=== PATIENT | female | born 1965 | race Caucasian/White ===

== ENCOUNTER 2022-03-08 07:59 | Oncology outpatient (recurring) (ONCR) | payer MEDICAID, SELFPAY ==
[2022-03-08 09:43] LABS: Basophils % 0.4 %; Eosinophils # 0.1 10^3/uL (0.0-0.8); Eosinophils % 4.6 %; Hematocrit 40.9 % (37.0-47.0); Lymphocytes # 0.7 10^3/uL (0.8-4.8); Lymphocytes % 24.7 %; Mean Corpuscular HGB Conc 31.8 g/dL (30.0-36.0); Mean Corpuscular Hemoglobin 26.7 pg (28.0-34.0); Mean Platelet Volume 9.5 fL (7.4-10.4); Monocytes # 0.2 10^3/uL (0.2-0.9); Monocytes % 6.7 %; Neutrophils # 1.79 10^3/uL (1.8-7.7); Neutrophils % 63.2 %; Nucleated Red Blood Cells % 0 %; Platelet Count 100 10^3/cmm (130-400); Red Blood Count 4.87 10^6/uL (4.1-5.3); Red Cell Distribution Width 15.7 % (12.1-15.1); White Blood Count 2.8 10^3/uL (4.0-10.0)
[2022-03-08 09:56] LABS: Erythrocyte Sedimentation Rate 9 mm/hr (0-15)
[2022-03-08 10:04] LABS: LAB Peripheral Smear Sent for Review
[2022-03-08 10:19] LABS: Alanine Aminotransferase 26 U/L (0-33); Albumin Level 4.1 g/dL (3.5-5.2); Alkaline Phosphatase 60 U/L (35-105); Aspartate Amino Transferase 33 U/L (0-32); Blood Urea Nitrogen 17 mg/dL (6-20); Calcium 9.3 mg/dL (8.5-10.5); Carbon Dioxide 29 mmol/L (22-29); Chloride 103 mmol/L (98-107); Glomerular Filtration Rate 103.8 mL/min (90-130); Glucose 96 mg/dL (65-115); Osmolality Calculated 293 mOsm/kg (285-295); Sodium 141 mmol/L (136-145); Thyroid Stimulating Hormone 3.92 uIU/mL (0.27-4.20); Total Bilirubin 0.8 mg/dL (0.15-1.2); Total Protein 7.1 g/dL (6.6-8.7)
[2022-03-08 10:31] LABS: Folate Level 12.1 ng/mL (4.8-37.3)
[2022-03-08 14:32] LABS: Iron 81 ug/dL (37-145); Percent Saturation 20.5 % (20-50); Total Iron Binding Capacity 394 mcg/dl; Unsaturated Iron Binding 313 ug/dL (112-347)
[2022-03-08 14:42] LABS: Vitamin B12 572 pg/mL (232-1245)
[2022-03-09 14:34] LABS: Anti-Nuclear Antibody Screen NEGATIVE (NEGATIVE)
[2022-03-10 22:28] LABS: HEP C RNA Viral Load Quant <1.18 NOT DETECTED Log IU/mL (NOT DETECTED); HEP C RNA Viral Load Quant <15 NOT DETECTED IU/mL (NOT DETECTED)
== END 2022-03-20 23:59 | disposition home or self-care (01) ==
PROVIDERS: PCP Family Medicine; Visit Provider Internal Medicine Medical Oncology
DX: D64.9 Anemia, unspecified (principal); R53.83 Other fatigue; M25.50 Pain in unspecified joint; B19.20 Unspecified viral hepatitis C without hepatic coma
CPT/HCPCS: 36415; 80053; 82607; 82746; 83540; 83550; 84443; 85025; 85651; 86038; 86140; 86431; 87522

== ENCOUNTER 2022-03-18 23:24 | Emergency (ER) | payer MEDICAID, SELFPAY ==
[2022-03-18 23:25] VITALS: BP 106/70; PULSE 58; RESP 18; TEMP 36.6; O2SAT 95; BMI 47.0
--- NOTE | 2022-03-18 23:26 | XRR_ITS ---
PROCEDURE INFORMATION: Exam: XR Chest Exam date and time: 03/18/2022 11:43 PM Age: 56 years old Clinical indication: Prior surgery; Surgery type: Gb; Patient HX: Gross hematemesis. Hypotensive. TECHNIQUE: Imaging protocol: Radiologic exam of the chest. Views: 1 view. COMPARISON: CR XR chest 2V* [id number] 06/25/2015 8:13 AM FINDINGS: Lungs: Minor areas of lung base atelectasis or scarring. No consolidation. Pleural spaces: Unremarkable. No pleural effusion. No pneumothorax. Heart/Mediastinum: The heart is large. No overt CHF. Bones/joints: Unremarkable. XR/XR chest 1V portable [id number] IMPRESSION: Stable chest with chronic findings but no definite acute process.
[2022-03-18] MEDS: sodium chloride 0.9% 1,000 ML 999 ML IV (23:30)
--- NOTE | 2022-03-18 23:30 | ECG_ITS ---
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 Measurements Intervals [place] Rate: 80 P: 43 [place]: 128 QRS: 51 QRSD: 79 T: 82 QT: 367 QTc: 423 Interpretive Statements SINUS RHYTHM NONSPECIFIC ST & T-WAVE ABNORMALITY No previous ECG available for comparison Electronically Signed On 03-19-2022 19:09:39 BREAKFAST COOK by Eloisa Gomez M.D. [id number]
--- NOTE | 2022-03-18 23:34 | W.ED.GENADLT ---
HPI - General Adult General: Chief complaint: General Medical Stated complaint: vomiting blood Time Seen by Provider: 03/18/22 23:25 Source: patient and EMS Mode of arrival: EMS Limitations: no limitations History of Present Illness: 56-year-old female states roughly an hour ago she started having vomiting blood. EMS states that she had large amount of blood in the toilet she has vomited in route as well vomitus has been bright red in nature no coffee-ground patient had some epigastric abdominal pain she denies any history of GI bleeds no history of cirrhosis she is not a drinker she has no history of varices she states she does take ibuprofen daily. Associated symptoms: Reports vomiting; Deny chest pain, dyspnea, headache(s) or rash Review of Systems Const: Denies: fever(s), chills, body aches or change in appetite Eyes: Denies: blurry vision or eye discomfort ENMT: Denies: throat pain or dental pain Card: Denies: chest pain Resp: Denies: dyspnea GI: Reports: vomiting and hematemesis : Denies: dysuria Musc: Denies: neck pain or back pain Skin/Breast: Denies: rash Neuro: Denies: headache(s) Psych: Denies: depression Chandan/Lymph: Denies: easy bruising All/Imm: Denies: urticaria PFSH ED PFSH: Medical History Celiac disease GERD (gastroesophageal reflux disease) Hepatitis C Treated in 2012 History of iron deficiency anemia Hypertension Obstructive sleep apnea Surgical History History of section History of cholecystectomy History of hysterectomy with unilateral oophorectomy (2009) Family History Father Cancer Liver and bone cancer Mother Cancer Breast and uterine cancer Brother Cancer Lung cancer Other Anesthesia complication Bleeding disorder CAD (coronary artery disease) Chronic kidney disease (CKD) Clotting disorder Diabetes Hypertension Psychiatric illness Denies family history of Dementia Hyperlipidemia Suicide Lung disease Stroke Social History Smoking and tobacco status: never smoked Alcohol intake: never Physical Exam Const: COMMON NORMALS: patient oriented x3 GENERAL APPEARANCE: ill appearing HENMT: COMMON NORMALS: normocephalic and atraumatic HEAD & SCALP: normocephalic and atraumatic Eye: COMMON NORMALS: Equal, round and reactive pupils present and EOMs intact bilaterally PUPIL: Yes Equal, round and reactive pupils present Neck/C-Spine: COMMON NORMALS: full ROM and supple Chest: COMMONS NORMALS: normal inspection of the chest and normal palpation of entire chest wall Resp: COMMON NORMALS: normal respiratory effort, No retractions, No use of accessory muscles and clear to auscultation bilaterally AUSCULTATION: clear to auscultation bilaterally Cardio: COMMON NORMALS: regular rate, regular rhythm and No murmurs present (Cardio) RATE: regular rate RHYTHM: regular rhythm GI: COMMON NORMALS: Normal to inspection, nondistended, normoactive bowel sounds present, Soft to palpation, non-tender and no masses PALPATION: Yes Soft to palpation Extremity: COMMON NORMALS: normal to inspection and full ROM Neuro: COMMON NORMALS: patient oriented x3, moves all extremities and no focal motor deficits Psych: COMMON NORMALS: mental status grossly normal, Normal thought process present and cooperative THOUGHT PROCESS: Normal thought process present Skin: COMMON NORMALS: no rashes or lesions noted and no wounds GENERAL SKIN EXAM: no rashes or lesions noted Course Vital Signs: Vital signs: Vital Signs Temperature 98 F 03/18/22 23:25 Pulse Rate 86 03/19/22 00:40 Respiratory Rate 19 H 03/19/22 00:40 Blood Pressure 152/80 03/19/22 00:40 Pulse Oximetry 97 03/19/22 00:40 Oxygen Delivery Me thod 03/19/22 00:40 [facility] - General Adult Medical Decision Making Patient presents with upper GI bleed she had had a large amount of hematemesis at home and in route patient was originally diaphoretic hypotensive she is much improved here after transfusion patient started on Protonix drip as well and given transaminase acid. Blood pressure is now 155/78 I did speak to Dr. Waldron of surgery along with the hospitalist will admit to the ICU at this time Lab Data 03/18/22 23:35 03/18/22 23:35 Radiology Impressions Chest X-Ray 03/18/22 23:26 IMPRESSION: Stable chest with chronic findings but no definite acute process. Laboratory Results WBC 7.0 10^3/uL (4.0-10.0) 03/18/22 23:35 RBC 4.26 10^6/uL (4.1-5.3) 03/18/22 23:35 Hgb 11.3 g/dL (11.5-15.3) L 03/18/22 23:35 Hct 35.7 % (37.0-47.0) L 03/18/22 23:35 MCV 83.8 fl (81-99) 03/18/22 23:35 MCH 26.5 pg (28.0-34.0) L 03/18/22 23:35 MCHC 31.7 g/dL (30.0-36.0) 03/18/22 23:35 RDW 15.7 % (12.1-15.1) H 03/18/22 23:35 Plt Count 181 10^3/cmm (130-400) 03/18/22 23:35 MPV 10.1 fL (7.4-10.4) 03/18/22 23:35 Neut % (Auto) 58.0 % 03/18/22 23:35 Lymph % (Auto) 29.4 % 03/18/22 23:35 [place] % (Auto) 6.6 % 03/18/22 23:35 Eos % (Auto) 5.0 % 03/18/22 23:35 Baso % (Auto) 0.7 % 03/18/22 23:35 Neut # (Auto) 4.03 10^3/uL (1.8-7.7) 03/18/22 23:35 Lymph # (Auto) 2.0 10^3/uL (0.8-4.8) 03/18/22 23:35 [place] # (Auto) 0.5 10^3/uL (0.2-0.9) 03/18/22 23:35 Eos # (Auto) 0.4 10^3/uL (0.0-0.8) 03/18/22 23:35 Baso # (Auto) 0.1 10^3/uL (0.0-0.1) 03/18/22 23:35 Nucleated RBC % (auto) 0 % 03/18/22 23:35 Nucleated RBCs # 0.0 /100WBC 03/18/22 23:35 PT 14.00 SECONDS (12.1-14.9) 03/18/22 23:35 INR 1.05 (0.8-1.2) 03/18/22 23:35 Sodium 140 mmol/L (136-145) 03/18/22 23:35 Potassium 4.4 mmol/L (3.5-5.1) 03/18/22 23:35 Chloride 104 mmol/L (98-107) 03/18/22 23:35 Carbon Dioxide 27 mmol/L (22-29) 03/18/22 23:35 Anion Gap 13.4 (5-19) 03/18/22 23:35 BUN 23 mg/dL (6-20) H 03/18/22 23:35 Creatinine 0.7 mg/dL (0.5-0.9) 03/18/22 23:35 GFR Calculation 86.9 mL/min (90-130) L 03/18/22 23:35 Glucose 184 mg/dL (65-115) H 03/18/22 23:35 Calculated Osmolality 298 mOsm/kg (285-295) H 03/18/22 23:35 Lactate 2.7 mmol/L (0.5-2.2) H 03/18/22 23:35 Calcium 8.7 mg/dL (8.5-10.5) 03/18/22 23:35 Total Bilirubin 0.5 mg/dL (0.15-1.2) 03/18/22 23:35 AST 26 U/L (0-32) 03/18/22 23:35 ALT 23 U/L (0-33) 03/18/22 23:35 Alkaline Phosphatase 54 U/L (35-105) 03/18/22 23:35 Total Protein 6.2 g/dL (6.6-8.7) L 03/18/22 23:35 Albumin 3.8 g/dL (3.5-5.2) 03/18/22 23:35 Globulin 2.4 g/dL (1.3-4.6) 03/18/22 23:35 Lipase 38 U/L (13-60) 03/18/22 23:35 Blood Type A Negative 03/18/22 23:42 Rho(D) Type Negative 03/18/22 23:42 Critical Care Time Critical Care Time: Critical Care Time: Yes Total Critical Care Time: 55 Attestation: The high probability of a clinically significant, sudden or life threatening deterioration of the patient's gi system(s) required my full and direct attention, intervention and personal management. The critical care time is as shown. 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
[2022-03-18 23:45] VITALS: BP 101/83; BP 74/57; PULSE 83; RESP 20; RESP 24; O2SAT 93
[2022-03-18 23:50] VITALS: BP 90/67; PULSE 88; RESP 19; O2SAT 90
[2022-03-18 23:54] LABS: Basophils # 0.1 10^3/uL (0.0-0.1); Basophils % 0.7 %; Eosinophils # 0.4 10^3/uL (0.0-0.8); Hematocrit 35.7 % (37.0-47.0); Hemoglobin 11.3 g/dL (11.5-15.3); Lymphocytes % 29.4 %; Mean Corpuscular HGB Conc 31.7 g/dL (30.0-36.0); Mean Corpuscular Hemoglobin 26.5 pg (28.0-34.0); Mean Corpuscular Volume 83.8 fl (81-99); Mean Platelet Volume 10.1 fL (7.4-10.4); Monocytes # 0.5 10^3/uL (0.2-0.9); Monocytes % 6.6 %; Neutrophils # 4.03 10^3/uL (1.8-7.7); Nucleated Red Blood Cells % 0 %; Platelet Count 181 10^3/cmm (130-400); Red Blood Count 4.26 10^6/uL (4.1-5.3); Red Cell Distribution Width 15.7 % (12.1-15.1)
[2022-03-18 23:55] VITALS: BP 101/83; PULSE 88; RESP 22; O2SAT 95
[2022-03-18] MEDS: ondansetron 2 mg/ML SDV 2 mL 4 MG IVP (23:58)
[2022-03-18 23:59] LABS: INR 1.05 (0.8-1.2)
[2022-03-19] VITALS (88 sets, daily range): BP systolic 107–186; BP diastolic 52–140; PULSE 69–103; RESP 11–28; O2SAT 91–98
[2022-03-19] MEDS: pantoprazole 40 mg SDV 80 MG IVP (00:03)
[2022-03-19 00:05] LABS: Lactate (Lactic Acid level) 2.7 mmol/L (0.5-2.2)
[2022-03-19 00:06] LABS: Alanine Aminotransferase 23 U/L (0-33); Albumin Level 3.8 g/dL (3.5-5.2); Alkaline Phosphatase 54 U/L (35-105); Anion Gap 13.4 (5-19); Aspartate Amino Transferase 26 U/L (0-32); Blood Urea Nitrogen 23 mg/dL (6-20); Calcium 8.7 mg/dL (8.5-10.5); Carbon Dioxide 27 mmol/L (22-29); Chloride 104 mmol/L (98-107); Globulin 2.4 g/dL (1.3-4.6); Glomerular Filtration Rate 86.9 mL/min (90-130); Glucose 184 mg/dL (65-115); Lipase 38 U/L (13-60); Osmolality Calculated 298 mOsm/kg (285-295); Potassium 4.4 mmol/L (3.5-5.1); Sodium 140 mmol/L (136-145); Total Bilirubin 0.5 mg/dL (0.15-1.2); Total Protein 6.2 g/dL (6.6-8.7)
[2022-03-19] MEDS: sodium chloride 0.9% (100 ml) 200 ML 999 ML (00:30)
--- NOTE | 2022-03-19 01:30 | CTR_ITS ---
PROCEDURE INFORMATION: Exam: CT Abdomen And Pelvis With Contrast Exam date and time: 03/19/2022 2:43 AM Age: 56 years old Clinical indication: Prior surgery; Surgery type: Gb. Hysterectomy. Csection; Patient HX: Gi bleed. Gross hematemesis. History of hep c. TECHNIQUE: Imaging protocol: Computed tomography of the abdomen and pelvis with contrast. Radiation optimization: All CT scans at this facility use at least one of these dose optimization techniques: automated exposure control; mA and/or kV adjustment per patient size (includes targeted exams where dose is matched to clinical indication); or iterative reconstruction. Contrast material: OMNI 350; Contrast volume: 100 ml; Contrast route: INTRAVENOUS (IV); COMPARISON: US gall bladder [id number] 06/25/2015 7:20 AM RADIATION DOSE METRICS: Total DLP (mGy-cm): 1300.53 FINDINGS: Lungs: Right lung base atelectasis. Diaphragm: Small hiatal hernia. Liver: Overtly cirrhotic liver. Gallbladder and bile ducts: Absent gallbladder. Pancreas: Unremarkable with no suspicious mass. No ductal dilation. Spleen: Moderate splenomegaly. Adrenal glands: A left adrenal 3.1 cm nodule is noted. Multiple small pelvic phleboliths. Tiny umbilical varices. Kidneys and ureters: No solid renal mass or hydronephrosis. Stomach and bowel: No small bowel obstruction or free air. No overt mucosal thickening. [id number] left colon diverticulosis. Appendix: Normal appendix. Intraperitoneal space: No large volume ascites. Vasculature: Multiple periesophageal varices are visualized. The umbilical vein is recanalized. Multiple abdominal varices are present. Lymph nodes: Multiple enlarged retroperitoneal lymph nodes measure up to about 26 mm. Urinary bladder: Unremarkable as visualized. Reproductive: Absent uterus. Likely small left ovary on series 4, image 71. Bones/joints: Mild spine DJD. Soft tissues: No acute or suspicious finding noted. CT/CT abdomen pelvis w con* [id number] IMPRESSION: 1. Clear evidence of portal hypertension with cirrhosis and splenomegaly with numerous varices. Given the periesophageal varices, this patient is at increased risk for a variceal bleed. 2. Mild constipation. 3. Mild likely reactive retroperitoneal and mesenteric lymphadenopathy. Recommend six-month follow-up. 4. No small bowel obstruction, abscess or free air. 5. A 3.1 cm left adrenal nodule should be followed up. There are no priors. 6. Multiple chronic findings above.
--- NOTE | 2022-03-19 02:08 | PM.HP ---
Providers/Chief Complaint Primary Care Provider: Deacon Resendiz MD Chief Complaint: vomiting blood History of Present Illness Shelby Mg is a 56 year old female with a past medical history of hepatitis C status posttreatment, history of hepatomegaly, history of chronic iron deficiency anemia, history of menorrhagia, history of chronic joint pain takes 600 mg of ibuprofen daily, morbid obesity, who presents to [facility] due to hematemesis. Patient tells me that roughly this morning at about 11 or so she woke up which she thought she had bloody cough, when she went to the bathroom she had a massive amount of hematemesis, family thinks it is possibly half a liter. She was brought here to [facility], no significant hypotensive episodes, but she did have massive hematemesis here in the emergency room, has been given 2 units of blood, remains hemodynamically stable, hemoglobin 11.3, during my examination she is receiving 2 units of blood, blood pressure 152/80, pulse 86, respiratory rate 19, temperature 98, O2 sat 97% on room air, family at bedside, no recurrent hematemesis. She does report diffuse abdominal pain more right upper quadrant pain, she denies any alcoholism. Denies any smoking. No history of liver cirrhosis. No history of esophageal varices. She tells me that the blood was dark red, no black tarry stools., She does report a history of ulcerative colitis, she has had an EGD and colonoscopy in the last [address] Montejo, she has been told that she has ulcerative colitis and celiac disease. Review of Systems Const: Denies: fever(s) Card: Denies: chest pain Resp: Denies: dyspnea GI: Reports: abdominal pain, nausea and vomiting; Denies: coffee ground emesis : Denies: flank pain Musc: Denies: back pain Skin/Breast: Denies: rash Medications/Allergies Home Medications Medication Instructions Recorded Confirmed Last Taken Type ibuprofen 200 mg tablet 200 mg PO Q6H PRN 03/08/22 03/08/22 Unknown History spironolactone 25 mg tablet 25 mg PO DAILY 03/08/22 03/08/22 Unknown History Allergies Allergy/AdvReac Type Severity Reaction Status Date / Time gluten Allergy ADR-Gastrointestinal Verified 03/08/22 08:18 Upset cephalexin [From Keflex] AdvReac rash Verified 03/08/22 08:18 codeine AdvReac rash Verified 03/08/22 08:18 PFSH Acute PFSH: Medical History Celiac disease GERD (gastroesophageal reflux disease) Hepatitis C Treated in 2012 History of iron deficiency anemia Hypertension Obstructive sleep apnea Surgical History History of section History of cholecystectomy History of hysterectomy with unilateral oophorectomy (2009) Family History Father Cancer Liver and bone cancer Mother Cancer Breast and uterine cancer Brother Cancer Lung cancer Other Anesthesia complication Bleeding disorder CAD (coronary artery disease) Chronic kidney disease (CKD) Clotting disorder Diabetes Hypertension Psychiatric illness Denies family history of Dementia Hyperlipidemia Suicide Lung disease Stroke Social History Smoking and tobacco status: never smoked Alcohol intake: never Vitals/I&O/Wt Last Vital Signs Temp 98 F 03/18/22 23:25 Pulse 86 03/19/22 00:40 Resp 19 H 03/19/22 00:40 BP 152/80 03/19/22 00:40 Pulse Ox 97 03/19/22 00:40 O2 Del Method 03/19/22 00:40 03/18/22 03/18/22 03/19/22 14:59 22:59 06:59 Intake Total 1000 / 1000 Balance 1000 / 1000 Weight last 48 hrs Weight 136.078 kg Physical Exam Const: COMMON NORMALS: no acute distress and patient oriented x3 Eye: COMMON NORMALS: Equal, round and reactive pupils present and EOMs intact bilaterally Lymph: LYMPHATIC: no lymphadenopathy noted Resp: COMMON NORMALS: normal respiratory effort, No retractions, No use of accessory muscles and clear to auscultation bilaterally AUSCULTATION: clear to auscultation bilaterally Cardio: COMMON NORMALS: no JVD, regular rate, regular rhythm, S1 normal heart sound present and S2 normal heart sound present RATE: regular rate RHYTHM: regular rhythm HEART SOUNDS: S1 normal heart sound present and S2 normal heart sound present GI: COMMON NORMALS: Normal to inspection, nondistended, normoactive bowel sounds present, Soft to palpation and non-tender Extremity: COMMON NORMALS: no pedal edema Neuro: COMMON NORMALS: patient oriented x3, CN's II-XII intact bilaterally, moves all extremities and no focal motor deficits Psych: COMMON NORMALS: mental status grossly normal Data 03/18/22 23:35 03/18/22 23:35 A&P Assessment and plan (1) Acute upper GI bleed: (2) Hepatitis C: (3) Anemia: Plan Acute upper GI bleed -Likely secondary to chronic NSAID use -Highly suspicious for bleeding GI ulcer -However I am quite concerned about the possibility of a bleeding esophageal varices, she has a history of hepatitis C, but it was treated, she does have a history of hepatomegaly, no significant LFT abnormalities we will do CT scan of the abdomen to evaluate for liver cirrhosis, for varices, she sounds as there is any significant evidence of this we will have to transfer her to tertiary level center -If there is any evidence of upper GI bleed related to esophageal varices, she will have to be transferred -Currently she is stabilized receiving 2 units PRBC, on a Protonix drip we will monitor -If she bleeds again then we will have to call and general surgery stat for acute upper GI endoscopy -Keep her n.p.o. -Protonix, Carafate -We will prepare 2 more units of blood -Agreeable to elective intubation if there is any massive recurrent massive hematemesis episodes -Full code -SCDs for DVT prophylaxis Attestations Medical Necessity Statement*: Patient requires hospital patient acute upper GI bleed, blood loss anemia, inpatient, greater than 2 midnights Coding Level of Care Code Acute Cvicu Rn for [facility] [place] Fwd Diagnoses Acute upper GI bleed K92.2 Hepatitis C B19.20 Anemia D64.9
[2022-03-19] MEDS: iohexol 350 mg/mL 500 mL Btl (per mL) IV (02:53)
[2022-03-19] MEDS: pantoprazole 40 MG in sodium chloride 0.9% (plus) 100 ML 20 MG IV (02:59)
[2022-03-19] MEDS: sucralfate 1 gm Tablet PO ×2 (03:07→08:14)
[2022-03-19] MEDS: hyDRALAzine 20 mg/mL INJ 1 mL 10 MG IVP (04:06)
[2022-03-19] MEDS: octreotide 100 mcg/mL SDV 50 MCG IVP (04:14)
[2022-03-19] MEDS: sodium chloride 0.9% 1,000 ML 75 ML IV (05:33)
[2022-03-19 05:39] LABS: Basophils # 0.1 10^3/uL (0.0-0.1); Basophils % 0.5 %; Eosinophils # 0.2 10^3/uL (0.0-0.8); Eosinophils % 1.7 %; Hematocrit 35.2 % (37.0-47.0); Hemoglobin 11.1 g/dL (11.5-15.3); Lymphocytes % 9.7 %; Mean Corpuscular HGB Conc 31.5 g/dL (30.0-36.0); Mean Corpuscular Hemoglobin 27.1 pg (28.0-34.0); Mean Corpuscular Volume 85.9 fl (81-99); Mean Platelet Volume 9.9 fL (7.4-10.4); Monocytes # 0.7 10^3/uL (0.2-0.9); Monocytes % 6.3 %; Neutrophils # 8.44 10^3/uL (1.8-7.7); Neutrophils % 81.4 %; Nucleated Red Blood Cells % 0 %; Platelet Count 133 10^3/cmm (130-400); Red Cell Distribution Width 15.7 % (12.1-15.1); White Blood Count 10.4 10^3/uL (4.0-10.0)
[2022-03-19] MEDS: octreotide 500 MCG in sodium chloride 0.9% (100 ml) 100 ML 10.1 MCG IV (06:47)
--- NOTE | 2022-03-19 07:15 | PC.NURSE ---
NIGHT NURSE GAVE REPORT STATING THAT TWO UNITS OF BLOOD WERE INFUSED DURING THEIR SHIFT.
[2022-03-19 08:58] LABS: Basophils # 0.1 10^3/uL (0.0-0.1); Basophils % 0.5 %; Eosinophils # 0.1 10^3/uL (0.0-0.8); Eosinophils % 0.8 %; Hemoglobin 10.5 g/dL (11.5-15.3); Lymphocytes # 1.3 10^3/uL (0.8-4.8); Lymphocytes % 12.3 %; Mean Corpuscular HGB Conc 31.8 g/dL (30.0-36.0); Mean Corpuscular Hemoglobin 27.3 pg (28.0-34.0); Mean Corpuscular Volume 85.7 fl (81-99); Mean Platelet Volume 9.7 fL (7.4-10.4); Monocytes # 0.5 10^3/uL (0.2-0.9); Monocytes % 4.7 %; Neutrophils # 8.25 10^3/uL (1.8-7.7); Neutrophils % 81.5 %; Nucleated Red Blood Cells % 0 %; Platelet Count 136 10^3/cmm (130-400); Red Blood Count 3.85 10^6/uL (4.1-5.3); Red Cell Distribution Width 15.9 % (12.1-15.1); White Blood Count 10.1 10^3/uL (4.0-10.0)
--- NOTE | 2022-03-19 09:53 | W.ED.GENADLT ---
HPI - General Adult General: Chief complaint: General Medical Stated complaint: vomiting blood Time Seen by Provider: 03/18/22 23:25 Source: patient and EMS Mode of arrival: EMS Limitations: no limitations History of Present Illness: Patient initially seen by Dr. Rodriguez. See his notes made arrange for transfer to [place] however the arrangements fell through. We made other arrangements for transfer patient remained stable on the transfer Via ambulance. [facility] ED PFSH: Medical History Celiac disease GERD (gastroesophageal reflux disease) Hepatitis C Treated in 2012 History of iron deficiency anemia Hypertension Obstructive sleep apnea Surgical History History of section History of cholecystectomy History of hysterectomy with unilateral oophorectomy (2009) Family History Father Cancer Liver and bone cancer Mother Cancer Breast and uterine cancer Brother Cancer Lung cancer Other Anesthesia complication Bleeding disorder CAD (coronary artery disease) Chronic kidney disease (CKD) Clotting disorder Diabetes Hypertension Psychiatric illness Denies family history of Dementia Hyperlipidemia Suicide Lung disease Stroke Social History Smoking and tobacco status: never smoked Alcohol intake: never Course Vital Signs: Vital signs: Vital Signs Temperature 98 F 03/18/22 23:25 Pulse Rate 72 03/19/22 11:30 Respiratory Rate 18 03/19/22 11:30 Blood Pressure 136/95 03/19/22 11:30 Pulse Oximetry 97 03/19/22 11:30 Oxygen Delivery Me thod 03/19/22 09:00 Oxygen Flow Rate 2 03/19/22 09:00 MDM - General Adult Medical Decision Making No further bleeding patient transferred to [facility] in good condition stable at the time of transfer Lab Data 03/19/22 08:47 03/18/22 23:35 Radiology Impressions Chest X-Ray 03/18/22 23:26 IMPRESSION: Stable chest with chronic findings but no definite acute process. Abdomen/Pelvis CT 03/19/22 01:30 IMPRESSION: 1. Clear evidence of portal hypertension with cirrhosis and splenomegaly with numerous varices. Given the periesophageal varices, this patient is at increased risk for a variceal bleed. 2. Mild constipation. 3. Mild likely reactive retroperitoneal and mesenteric lymphadenopathy. Recommend six-month follow-up. 4. No small bowel obstruction, abscess or free air. 5. A 3.1 cm left adrenal nodule should be followed up. There are no priors. 6. Multiple chronic findings above. Laboratory Results WBC 10.1 10^3/uL (4.0-10.0) H 03/19/22 08:47 RBC 3.85 10^6/uL (4.1-5.3) L 03/19/22 08:47 Hgb 10.5 g/dL (11.5-15.3) L 03/19/22 08:47 Hct 33.0 % (37.0-47.0) L 03/19/22 08:47 MCV 85.7 fl (81-99) 03/19/22 08:47 MCH 27.3 pg (28.0-34.0) L 03/19/22 08:47 MCHC 31.8 g/dL (30.0-36.0) 03/19/22 08:47 RDW 15.9 % (12.1-15.1) H 03/19/22 08:47 Plt Count 136 10^3/cmm (130-400) 03/19/22 08:47 MPV 9.7 fL (7.4-10.4) 03/19/22 08:47 Neut % (Auto) 81.5 % 03/19/22 08:47 Lymph % (Auto) 12.3 % 03/19/22 08:47 [place] % (Auto) 4.7 % 03/19/22 08:47 Eos % (Auto) 0.8 % 03/19/22 08:47 Baso % (Auto) 0.5 % 03/19/22 08:47 Neut # (Auto) 8.25 10^3/uL (1.8-7.7) H 03/19/22 08:47 Lymph # (Auto) 1.3 10^3/uL (0.8-4.8) 03/19/22 08:47 [place] # (Auto) 0.5 10^3/uL (0.2-0.9) 03/19/22 08:47 Eos # (Auto) 0.1 10^3/uL (0.0-0.8) 03/19/22 08:47 Baso # (Auto) 0.1 10^3/uL (0.0-0.1) 03/19/22 08:47 Nucleated RBC % (auto) 0 % 03/19/22 08:47 Nucleated RBCs # 0.0 /100WBC 03/19/22 08:47 PT 14.00 SECONDS (12.1-14.9) 03/18/22 23:35 INR 1.05 (0.8-1.2) 03/18/22 23:35 Sodium 140 mmol/L (136-145) 03/18/22 23:35 Potassium 4.4 mmol/L (3.5-5.1) 03/18/22 23:35 Chloride 104 mmol/L (98-107) 03/18/22 23:35 Carbon Dioxide 27 mmol/L (22-29) 03/18/22 23:35 Anion Gap 13.4 (5-19) 03/18/22 23:35 BUN 23 mg/dL (6-20) H 03/18/22 23:35 Creatinine 0.7 mg/dL (0.5-0.9) 03/18/22 23:35 GFR Calculation 86.9 mL/min (90-130) L 03/18/22 23:35 Glucose 184 mg/dL (65-115) H 03/18/22 23:35 Calculated Osmolality 298 mOsm/kg (285-295) H 03/18/22 23:35 Lactate 2.7 mmol/L (0.5-2.2) H 03/18/22 23:35 Calcium 8.7 mg/dL (8.5-10.5) 03/18/22 23:35 Total Bilirubin 0.5 mg/dL (0.15-1.2) 03/18/22 23:35 AST 26 U/L (0-32) 03/18/22 23:35 ALT 23 U/L (0-33) 03/18/22 23:35 Alkaline Phosphatase 54 U/L (35-105) 03/18/22 23:35 Total Protein 6.2 g/dL (6.6-8.7) L 03/18/22 23:35 Albumin 3.8 g/dL (3.5-5.2) 03/18/22 23:35 Globulin 2.4 g/dL (1.3-4.6) 03/18/22 23:35 Lipase 38 U/L (13-60) 03/18/22 23:35 SARS-CoV-2 Ag (Rapid) negative (Negative) 03/19/22 10:11 Blood Type A Negative 03/18/22 23:42 Rho(D) Type Negative 03/18/22 23:42 Antibody Screen Negative 03/18/22 23:42 Crossmatch See Detail 03/18/22 23:42 Discharge Plan Discharge Patient Disposition: Xfer Short-Term Hosp Clinical Impression: Acute upper GI bleed, Bleeding esophageal varices Condition: Stable Referrals: Deacon Resendiz MD [Primary Care Provider] - Discharge Diet: As Directed Discharge Activity: Resume usual activity Coding Level of Care Code ED 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
[2022-03-19 10:39] LABS: SARS Covid-2 Antigen negative (Negative)
--- NOTE | 2022-03-19 12:21 | PM.TDS ---
Transfer Summary Providers Date of Discharge/Transfer: 03/19/22 Primary Care Provider: Deacon Resendiz MD Transfer Plans: Anticipated date of transfer: 03/19/22. Receiving Facility: [facility]. Receiving Provider: Hospitalist/GI. Diagnoses at Discharge Discharge Diagnosis (1) Acute upper GI bleed: Status: Acute (2) Hepatitis C: Status: Acute (3) Anemia: Status: Acute Reason for Visit Reason for Visit vomiting blood Brief History: Shelby Mg is a 56 year old female with a past medical history of hepatitis C status posttreatment, history of hepatomegaly, history of chronic iron deficiency anemia, history of menorrhagia, history of chronic joint pain takes 600 mg of ibuprofen daily, morbid obesity, who presents to [facility] due to hematemesis.? Patient tells me that roughly this morning at about 11 or so she woke up which she thought she had bloody cough, when she went to the bathroom she had a massive amount of hematemesis, family thinks it is possibly half a liter.? She was brought here to [facility], no significant hypotensive episodes, but she did have massive hematemesis here in the emergency room, has been given 2 units of blood, remains hemodynamically stable, hemoglobin 11.3, during my examination she is receiving 2 units of blood, blood pressure 152/80, pulse 86, respiratory rate 19, temperature 98, O2 sat 97% on room air, family at bedside, no recurrent hematemesis.? She does report diffuse abdominal pain more right upper quadrant pain, she denies any alcoholism.? Denies any smoking.? No history of liver cirrhosis.? No history of esophageal varices.? She tells me that the blood was dark red, no black tarry stools.,? She does report a history of ulcerative colitis, she has had an EGD and colonoscopy in the last [address] Montejo, she has been told that she has ulcerative colitis and celiac disease. Hospital Course Hospital Course On presentation to the ER there was concern for variceal bleed given her history of hepatitis C and cirrhosis in the past. Surgery was consulted who requested patient to be transferred to a [facility] where GI is available for further management of variceal bleed. She was started on octreotide drip. She received 2 unit of blood transfusion. Otherwise she remained hemodynamically stable during hospitalization. Transfer was sought as per request from surgical team and finally she was accepted at [facility]. On day of transfer her hemoglobin is 10.5 and she has been hemodynamically stable without any active hematemesis or melena on the day of transfer. Physical Exam Const: COMMON NORMALS: no acute distress and patient oriented x3 GENERAL APPEARANCE: ill appearing HENMT: COMMON NORMALS: normocephalic and atraumatic HEAD & SCALP: normocephalic and atraumatic Eye: COMMON NORMALS: Equal, round and reactive pupils present and EOMs intact bilaterally PUPIL: Yes Equal, round and reactive pupils present Neck/C-Spine: COMMON NORMALS: full ROM, supple and no JVD Lymph: LYMPHATIC: no lymphadenopathy noted Chest: COMMONS NORMALS: normal inspection of the chest and normal palpation of entire chest wall Resp: COMMON NORMALS: normal respiratory effort, No retractions, No use of accessory muscles and clear to auscultation bilaterally AUSCULTATION: clear to auscultation bilaterally Cardio: COMMON NORMALS: no JVD, regular rate, regular rhythm, S1 normal heart sound present, S2 normal heart sound present and No murmurs present (Cardio) RATE: regular rate RHYTHM: regular rhythm HEART SOUNDS: S1 normal heart sound present and S2 normal heart sound present GI: COMMON NORMALS: Normal to inspection, nondistended, normoactive bowel sounds present, Soft to palpation, non-tender and no masses PALPATION: Yes Soft to palpation Extremity: COMMON NORMALS: normal to inspection, full ROM and no pedal edema Neuro: COMMON NORMALS: patient oriented x3, CN's II-XII intact bilaterally, moves all extremities and no focal motor deficits Psych: COMMON NORMALS: mental status grossly normal, Normal thought process present and cooperative THOUGHT PROCESS: Normal thought process present Skin: COMMON NORMALS: no rashes or lesions noted and no wounds GENERAL SKIN EXAM: no rashes or lesions noted TS Data Studies Completed and Pending Pending at discharge Category Date Time Status Leukocyte Reduced RBC Stat Lab 03/18/22 23:42 Results Type and Screen Routine Lab 03/18/22 23:42 Results Labs from last 24 hours 03/19/22 03/19/22 03/19/22 10:11 08:47 05:32 WBC 10.1 H 10.4 H RBC 3.85 L 4.10 Hgb 10.5 L 11.1 L Hct 33.0 L 35.2 L MCV 85.7 85.9 MCH 27.3 L 27.1 L MCHC 31.8 31.5 RDW 15.9 H 15.7 H Plt Count 136 133 MPV 9.7 9.9 Neut % (Auto) 81.5 81.4 Lymph % (Auto) 12.3 9.7 Josephine % (Auto) 4.7 6.3 Eos % (Auto) 0.8 1.7 Baso % (Auto) 0.5 0.5 Neut # (Auto) 8.25 H 8.44 H Lymph # (Auto) 1.3 1.0 Josephine # (Auto) 0.5 0.7 Eos # (Auto) 0.1 0.2 Baso # (Auto) 0.1 0.1 Nucleated RBC % (auto) 0 0 Nucleated RBCs # 0.0 0.0 PT INR Sodium Potassium Chloride Carbon Dioxide Anion Gap BUN Creatinine GFR Calculation Glucose Calculated Osmolality Lactate Calcium Total Bilirubin AST ALT Alkaline Phosphatase Total Protein Albumin Globulin Lipase SARS-CoV-2 Ag (Rapid) negative Blood Type Rho(D) Type Antibody Screen Crossmatch 03/18/22 03/18/22 03/18/22 23:42 23:35 23:35 WBC RBC Hgb Hct MCV MCH MCHC RDW Plt Count MPV Neut % (Auto) Lymph % (Auto) Josephine % (Auto) Eos % (Auto) Baso % (Auto) Neut # (Auto) Lymph # (Auto) Josephine # (Auto) Eos # (Auto) Baso # (Auto) Nucleated RBC % (auto) Nucleated RBCs # PT INR Sodium 140 Potassium 4.4 Chloride 104 Carbon Dioxide 27 Anion Gap 13.4 BUN 23 H Creatinine 0.7 GFR Calculation 86.9 L Glucose 184 H Calculated Osmolality 298 H Lactate 2.7 H Calcium 8.7 Total Bilirubin 0.5 AST 26 ALT 23 Alkaline Phosphatase 54 Total Protein 6.2 L Albumin 3.8 Globulin 2.4 Lipase 38 SARS-CoV-2 Ag (Rapid) Blood Type A Negative Rho(D) Type Negative Antibody Screen Negative Crossmatch See Detail 03/18/22 03/18/22 23:35 23:35 WBC 7.0 RBC 4.26 Hgb 11.3 L Hct 35.7 L MCV 83.8 MCH 26.5 L MCHC 31.7 RDW 15.7 H Plt Count 181 MPV 10.1 Neut % (Auto) 58.0 Lymph % (Auto) 29.4 Josephine % (Auto) 6.6 Eos % (Auto) 5.0 Baso % (Auto) 0.7 Neut # (Auto) 4.03 Lymph # (Auto) 2.0 Josephine # (Auto) 0.5 Eos # (Auto) 0.4 Baso # (Auto) 0.1 Nucleated RBC % (auto) 0 Nucleated RBCs # 0.0 PT 14.00 INR 1.05 Sodium Potassium Chloride Carbon Dioxide Anion Gap BUN Creatinine GFR Calculation Glucose Calculated Osmolality Lactate Calcium Total Bilirubin AST ALT Alkaline Phosphatase Total Protein Albumin Globulin Lipase SARS-CoV-2 Ag (Rapid) Blood Type Rho(D) Type Antibody Screen Crossmatch Completed Studies During Hospitalization Category Date Time Status CT abdomen pelvis w con* [id number] Stat Cat Scan 03/19/22 01:30 Completed XR chest 1V portable [id number] Stat Exams 03/18/22 23:26 Completed Laboratory Last Values WBC 10.1 10^3/uL (4.0-10.0) H 03/19/22 08:47 RBC 3.85 10^6/uL (4.1-5.3) L 03/19/22 08:47 Hgb 10.5 g/dL (11.5-15.3) L 03/19/22 08:47 Hct 33.0 % (37.0-47.0) L 03/19/22 08:47 MCV 85.7 fl (81-99) 03/19/22 08:47 MCH 27.3 pg (28.0-34.0) L 03/19/22 08:47 MCHC 31.8 g/dL (30.0-36.0) 03/19/22 08:47 RDW 15.9 % (12.1-15.1) H 03/19/22 08:47 Plt Count 136 10^3/cmm (130-400) 03/19/22 08:47 MPV 9.7 fL (7.4-10.4) 03/19/22 08:47 Neut % (Auto) 81.5 % 03/19/22 08:47 Lymph % (Auto) 12.3 % 03/19/22 08:47 Josephine % (Auto) 4.7 % 03/19/22 08:47 Eos % (Auto) 0.8 % 03/19/22 08:47 Baso % (Auto) 0.5 % 03/19/22 08:47 Neut # (Auto) 8.25 10^3/uL (1.8-7.7) H 03/19/22 08:47 Lymph # (Auto) 1.3 10^3/uL (0.8-4.8) 03/19/22 08:47 Josephine # (Auto) 0.5 10^3/uL (0.2-0.9) 03/19/22 08:47 Eos # (Auto) 0.1 10^3/uL (0.0-0.8) 03/19/22 08:47 Baso # (Auto) 0.1 10^3/uL (0.0-0.1) 03/19/22 08:47 Nucleated RBC % (auto) 0 % 03/19/22 08:47 Nucleated RBCs # 0.0 /100WBC 03/19/22 08:47 PT 14.00 SECONDS (12.1-14.9) 03/18/22 23:35 INR 1.05 (0.8-1.2) 03/18/22 23:35 Sodium 140 mmol/L (136-145) 03/18/22 23:35 Potassium 4.4 mmol/L (3.5-5.1) 03/18/22 23:35 Chloride 104 mmol/L (98-107) 03/18/22 23:35 Carbon Dioxide 27 mmol/L (22-29) 03/18/22 23:35 Anion Gap 13.4 (5-19) 03/18/22 23:35 BUN 23 mg/dL (6-20) H 03/18/22 23:35 Creatinine 0.7 mg/dL (0.5-0.9) 03/18/22 23:35 GFR Calculation 86.9 mL/min (90-130) L 03/18/22 23:35 Glucose 184 mg/dL (65-115) H 03/18/22 23:35 Calculated Osmolality 298 mOsm/kg (285-295) H 03/18/22 23:35 Lactate 2.7 mmol/L (0.5-2.2) H 03/18/22 23:35 Calcium 8.7 mg/dL (8.5-10.5) 03/18/22 23:35 Total Bilirubin 0.5 mg/dL (0.15-1.2) 03/18/22 23:35 AST 26 U/L (0-32) 03/18/22 23:35 ALT 23 U/L (0-33) 03/18/22 23:35 Alkaline Phosphatase 54 U/L (35-105) 03/18/22 23:35 Total Protein 6.2 g/dL (6.6-8.7) L 03/18/22 23:35 Albumin 3.8 g/dL (3.5-5.2) 03/18/22 23:35 Globulin 2.4 g/dL (1.3-4.6) 03/18/22 23:35 Lipase 38 U/L (13-60) 03/18/22 23:35 SARS-CoV-2 Ag (Rapid) negative (Negative) 03/19/22 10:11 Blood Type A Negative 03/18/22 23:42 Rho(D) Type Negative 03/18/22 23:42 Antibody Screen Negative 03/18/22 23:42 Crossmatch See Detail 03/18/22 23:42 Radiology Impressions Chest X-Ray 03/18/22 23:26 IMPRESSION: Stable chest with chronic findings but no definite acute process. Abdomen/Pelvis CT 03/19/22 01:30 IMPRESSION: 1. Clear evidence of portal hypertension with cirrhosis and splenomegaly with numerous varices. Given the periesophageal varices, this patient is at increased risk for a variceal bleed. 2. Mild constipation. 3. Mild likely reactive retroperitoneal and mesenteric lymphadenopathy. Recommend six-month follow-up. 4. No small bowel obstruction, abscess or free air. 5. A 3.1 cm left adrenal nodule should be followed up. There are no priors. 6. Multiple chronic findings above. Recent Clincial Data Last Vital Signs Temp 98 F 03/18/22 23:25 Pulse 72 03/19/22 11:30 Resp 18 03/19/22 11:30 BP 136/95 03/19/22 11:30 Pulse Ox 97 03/19/22 11:30 O2 Del Method 03/19/22 09:00 O2 Flow Rate 2 03/19/22 09:00 Vital Signs Pulse Resp BP Pulse Ox O2 Del Method O2 Flow Rate 03/19/22 11:30 72 18 136/95 97 03/19/22 11:00 73 13 143/63 92 03/19/22 10:30 73 20 H 145/69 94 03/19/22 10:00 73 15 118/66 93 03/19/22 09:00 79 17 136/72 94 Nasal Cannula 2 03/19/22 08:30 77 17 124/52 93 Nasal Cannula 2 03/19/22 08:00 71 17 117/78 94 Nasal Cannula 2 03/19/22 07:30 69 13 137/71 94 Nasal Cannula 2 03/19/22 07:00 72 16 137/91 94 Nasal Cannula 2 03/19/22 06:35 92 18 144/59 93 03/19/22 06:30 84 13 142/64 94 03/19/22 06:25 89 13 144/69 95 03/19/22 06:20 90 15 137/69 94 03/19/22 06:15 81 14 144/69 95 03/19/22 06:10 85 14 144/69 93 03/19/22 06:05 86 14 136/80 94 03/19/22 06:00 91 14 131/74 92 03/19/22 05:55 88 13 144/70 93 03/19/22 05:50 87 14 136/84 94 03/19/22 05:45 99 21 H 134/76 93 03/19/22 05:40 89 16 134/76 95 03/19/22 05:35 88 15 138/73 93 03/19/22 05:30 92 16 153/72 94 03/19/22 05:25 94 21 H 153/72 94 03/19/22 05:20 91 14 139/74 94 03/19/22 05:15 95 13 151/77 93 03/19/22 05:10 91 14 154/74 93 03/19/22 05:05 98 14 131/89 93 03/19/22 05:00 99 16 131/89 93 03/19/22 04:55 103 H 15 142/76 92 03/19/22 04:50 100 14 138/66 93 03/19/22 04:45 102 H 13 138/80 92 03/19/22 04:40 98 16 162/76 93 03/19/22 04:35 93 14 178/89 94 03/19/22 04:30 93 14 178/89 94 03/19/22 04:25 85 11 L 186/106 92 03/19/22 04:20 79 13 144/99 93 03/19/22 04:15 96 19 H 164/98 95 03/19/22 04:10 164/98 03/19/22 04:05 164/98 03/19/22 04:00 164/98 03/19/22 03:55 96 14 164/98 92 03/19/22 03:50 86 14 149/97 95 03/19/22 03:45 85 13 149/97 93 03/19/22 03:40 90 12 170/110 96 03/19/22 03:35 90 18 170/110 93 03/19/22 03:30 86 17 164/102 95 03/19/22 03:25 89 20 H 146/95 96 03/19/22 03:20 83 18 162/140 96 03/19/22 03:15 85 14 121/87 96 03/19/22 03:10 91 19 H 161/88 96 03/19/22 03:05 88 15 161/88 96 03/19/22 03:00 91 12 156/98 96 03/19/22 02:55 103 H 25 H 144/98 95 03/19/22 02:54 96 03/19/22 02:40 120/72 03/19/22 02:35 82 20 H 120/72 96 03/19/22 02:30 81 25 H 134/90 97 03/19/22 02:25 90 15 153/73 96 03/19/22 02:15 78 15 151/94 97 03/19/22 02:10 82 27 H 167/105 98 03/19/22 02:05 77 21 H 167/105 98 03/19/22 02:00 83 24 H 148/93 97 03/19/22 01:55 82 14 163/82 97 03/19/22 01:50 77 15 163/82 96 03/19/22 01:45 93 17 142/86 96 03/19/22 01:40 78 15 142/86 96 03/19/22 01:35 80 20 H 133/79 96 03/19/22 01:30 81 23 H 160/95 96 03/19/22 01:25 84 28 H 160/95 96 03/19/22 01:20 81 18 148/89 94 03/19/22 01:15 85 23 H 155/78 96 03/19/22 01:10 86 19 H 159/56 96 03/19/22 01:05 85 15 162/79 97 03/19/22 01:00 84 17 162/79 97 03/19/22 00:55 88 23 H 131/71 97 03/19/22 00:50 90 25 H 117/90 95 03/19/22 00:45 97 17 117/90 94 03/19/22 00:40 86 19 H 152/80 97 03/19/22 00:35 83 23 H 147/84 97 03/19/22 00:30 87 25 H 140/68 96 03/19/22 00:25 94 25 H 131/78 94 03/19/22 00:40 86 19 H 152/80 97 Room Air 03/19/22 00:25 89 23 H 131/78 95 Room Air Intake & Output/Weight 03/17/22 03/18/22 03/19/22 03/20/22 06:59 06:59 06:59 06:59 Intake Total 1620 / 1620 100 / 100 Balance 1620 / 1620 100 / 100 Weight 136.078 kg Vitals Last Vital Signs Temp 98 F 03/18/22 23:25 Pulse 72 03/19/22 11:30 Resp 18 03/19/22 11:30 BP 136/95 03/19/22 11:30 Pulse Ox 97 03/19/22 11:30 O2 Del Method 03/19/22 09:00 O2 Flow Rate 2 03/19/22 09:00 TS Medications Medications Octreotide Acetate 500 mcg/ (Sodium Chloride) 101 mls @ 10.1 mls/hr IV .Q10H [facility] Last Admin: 03/19/22 06:47 Dose: 50 mcg/hr, 10.1 mls/hr Sodium Chloride (Sodium Chloride 0.9%) 1,000 mls @ 75 mls/hr IV .[id number] [facility] Last Admin: 03/19/22 05:33 Dose: 75 mls/hr Sucralfate (Sucralfate 1 Gm Tablet) 1 gm PO Q6H [facility] Last Admin: 03/19/22 08:14 Dose: 1 gm Discontinued Medications Hydralazine HCl (Hydralazine 20 Mg/Ml Inj 1 Ml) 10 mg IVP ONCE ONE Stop: 03/19/22 03:41 Last Admin: 03/19/22 04:06 Dose: 10 mg Sodium Chloride (Sodium Chloride 0.9%) 1,000 mls @ 999 mls/hr IV .Q1H1M ONE Stop: 03/19/22 00:26 Last Infusion: 03/19/22 00:10 Dose: Infused Pantoprazole Sodium 40 mg/ (Sodium Chloride) 100 mls @ 20 mls/hr IV .Q5H ONE Stop: 03/19/22 04:30 Last Infusion: 03/19/22 08:16 Dose: Infused Sodium Chloride (Sodium Chloride 0.9% (100 Ml)) Confirm Administered Dose 200 mls @ as directed .ROUTE .STK-MED ONE Stop: 03/19/22 00:03 Last Infusion: 03/19/22 02:45 Dose: Infused Sodium Chloride/ Sodium (Chloride) 200 mls @ 999 mls/hr IV .Q13M [facility] Last Admin: 03/19/22 09:39 Dose: Not Given Tranexamic Acid 1,000 mg/ (Sodium Chloride) 110 mls @ 330 mls/hr IV ONCE ONE Stop: 03/19/22 01:04 Last Infusion: 03/19/22 04:05 Dose: Infused Tranexamic Acid 1,000 mg/ (Sodium Chloride) 110 mls @ 330 mls/hr IV ONCE ONE Stop: 03/19/22 02:05 Last Infusion: 03/19/22 04:45 Dose: Infused Iohexol (Iohexol 350 Mg/Ml 500 Ml Btl (Per Ml)) 0 ml IV ONCE ONE Stop: 03/19/22 02:53 Last Admin: 03/19/22 02:53 Dose: 100 ml Labetalol HCl (Labetalol 5 Mg/Ml Sdv 20ml) 10 mg IVP ONCE ONE Stop: 03/19/22 04:32 Last Admin: 03/19/22 05:37 Dose: Not Given Octreotide Acetate (Octreotide 100 Mcg/Ml Sdv) 50 mcg IVP ONCE ONE Stop: 03/19/22 03:26 Last Admin: 03/19/22 04:14 Dose: 50 mcg Ondansetron HCl (Ondansetron 2 Mg/Ml Sdv 2 Ml) 4 mg IVP ONCE ONE Stop: 03/18/22 23:32 Last Admin: 03/18/22 23:58 Dose: 4 mg Pantoprazole Sodium (Pantoprazole 40 Mg Sdv) 80 mg IVP ONCE ONE Stop: 03/18/22 23:32 Last Admin: 03/19/22 00:03 Dose: 80 mg Allergies gluten Allergy (Verified 03/19/22 08:09) ADR-Gastrointestinal Upset ibuprofen Allergy (Verified 03/19/22 08:09) ADR-Gastrointestinal Upset cephalexin [From Keflex] Adverse Reaction (Verified 03/19/22 08:09) rash codeine Adverse Reaction (Verified 03/19/22 08:09) rash Home Medications spironolactone 25 mg tablet 25 mg PO DAILY 03/08/22 [History Confirmed 03/19/22] Discharge Plan Discharge Patient Disposition: Xfer Short-Term Hosp Clinical Impression: Acute upper GI bleed, Bleeding esophageal varices Condition: Stable Referrals: Deacon Resendiz MD [Primary Care Provider] - Discharge Diet: As Directed Discharge Activity: Resume usual activity Transfer Attestations Time Spent in Transfer Care: greater than 30 min Specific Discharge Activities: educating patient, discussing with pcp/other providers, discussing with casework supervisor/social workers/dc planners, documenting/other paperwork and evaluating patient/reviewing data Status at Transfer: Cognitive status at transfer: cognitively intact; Behavioral status at transfer: cooperative; Functional status at transfer: other assisted ambulation; Overall status at transfer: patient is not back to baseline Quality Metrics Clinical Quality Measures [ No reported AMI, CVA or VTE this stay] Coding Level of Care Code Acute Photo Checker for [facility] Fwd Diagnoses Acute upper GI bleed K92.2 Hepatitis C B19.20 Anemia D64.9
== END 2022-03-19 12:18 | disposition short-term general hospital (02) ==
PROVIDERS: Family Medicine; Emergency Provider Emergency Medicine; PCP Family Medicine
DX: K92.2 Gastrointestinal hemorrhage, unspecified (principal); I85.01 Esophageal varices with bleeding; Z86.19 Personal history of other infectious and parasitic diseases; I10 Essential (primary) hypertension; Z20.822 Contact with and (suspected) exposure to COVID-19
CPT/HCPCS: 71045; 74177; 80053; 83605; 83690; 85025; 85610; 86850; 86900; 86920; 87426; 93005; 96365; 96366; 96367; 96375; 99291; C9113; J0360; J2354; J2405; J7030; J7050; P9016; Q9967

== ENCOUNTER 2022-04-01 10:29 | Outpatient (CLI) | payer MEDICAID, SELFPAY ==
[2022-04-01 11:59] LABS: Tumor Marker Alpha Fetoprotein 3.6 ng/mL (0-8.3)
== END 2022-04-01 10:30 | disposition home or self-care (01) ==
LOC: LAB 10:32
PROVIDERS: PCP Family Medicine; Visit Provider Internal Medicine Medical Oncology
DX: B19.20 Unspecified viral hepatitis C without hepatic coma (principal)
CPT/HCPCS: 36415; 82105

== ENCOUNTER 2022-04-05 15:04 | Oncology outpatient (recurring) (ONCR) | payer MEDICAID, SELFPAY ==
[2022-04-05 16:31] LABS: Basophils % 0.6 %; Eosinophils # 0.2 10^3/uL (0.0-0.8); Hematocrit 33.3 % (37.0-47.0); Hemoglobin 10.3 g/dL (11.5-15.3); Lymphocytes # 0.9 10^3/uL (0.8-4.8); Lymphocytes % 27.9 %; Mean Corpuscular HGB Conc 30.9 g/dL (30.0-36.0); Mean Corpuscular Hemoglobin 26.3 pg (28.0-34.0); Mean Corpuscular Volume 84.9 fl (81-99); Mean Platelet Volume 10.5 fL (7.4-10.4); Monocytes # 0.2 10^3/uL (0.2-0.9); Monocytes % 7.5 %; Neutrophils # 1.88 10^3/uL (1.8-7.7); Nucleated Red Blood Cells % 0 %; Platelet Count 154 10^3/cmm (130-400); Red Blood Count 3.92 10^6/uL (4.1-5.3); Red Cell Distribution Width 14.7 % (12.1-15.1); White Blood Count 3.2 10^3/uL (4.0-10.0)
[2022-04-05 18:13] LABS: Alanine Aminotransferase 28 U/L (0-33); Albumin Level 4.2 g/dL (3.5-5.2); Alkaline Phosphatase 50 U/L (35-105); Anion Gap 16.7 (5-19); Aspartate Amino Transferase 42 U/L (0-32); Blood Urea Nitrogen 20 mg/dL (6-20); Calcium 9.3 mg/dL (8.5-10.5); Carbon Dioxide 25 mmol/L (22-29); Chloride 102 mmol/L (98-107); Globulin 2.9 g/dL (1.3-4.6); Glucose 130 mg/dL (65-115); Osmolality Calculated 292 mOsm/kg (285-295); Potassium 4.7 mmol/L (3.5-5.1); Sodium 139 mmol/L (136-145); Total Bilirubin 0.3 mg/dL (0.15-1.2); Total Protein 7.1 g/dL (6.6-8.7)
[2022-04-05 19:43] LABS: Ferritin 17 ng/mL (15-150); Iron 31 ug/dL (37-145); Percent Saturation 7.5 % (20-50); Total Iron Binding Capacity 413 mcg/dl; Unsaturated Iron Binding 382 ug/dL (112-347)
== END 2022-04-20 23:59 | disposition home or self-care (01) ==
LOC: ONCMED 15:06
PROVIDERS: PCP Family Medicine; Visit Provider Internal Medicine Medical Oncology
DX: D61.818 Other pancytopenia (principal); K74.60 Unspecified cirrhosis of liver; K76.6 Portal hypertension; I85.01 Esophageal varices with bleeding; D64.9 Anemia, unspecified; Z79.899 Other long term (current) drug therapy; Z86.19 Personal history of other infectious and parasitic diseases
CPT/HCPCS: 36415; 80053; 82728; 83540; 83550; 85025

== ENCOUNTER 2022-05-17 12:02 | Oncology outpatient (recurring) (ONCR) | payer MEDICAID, SELFPAY ==
[2022-05-17 13:41] LABS: Basophils % 0.7 %; Eosinophils # 0.2 10^3/uL (0.0-0.8); Eosinophils % 7.1 %; Hematocrit 36.9 % (37.0-47.0); Hemoglobin 11.2 g/dL (11.5-15.3); Lymphocytes # 0.9 10^3/uL (0.8-4.8); Lymphocytes % 28.7 %; Mean Corpuscular HGB Conc 30.4 g/dL (30.0-36.0); Mean Corpuscular Hemoglobin 25.6 pg (28.0-34.0); Mean Corpuscular Volume 84.4 fl (81-99); Mean Platelet Volume 10.4 fL (7.4-10.4); Monocytes # 0.2 10^3/uL (0.2-0.9); Monocytes % 7.1 %; Neutrophils # 1.67 10^3/uL (1.8-7.7); Neutrophils % 56.4 %; Nucleated Red Blood Cells % 0 %; Platelet Count 120 10^3/cmm (130-400); Red Blood Count 4.37 10^6/uL (4.1-5.3); Red Cell Distribution Width 15.5 % (12.1-15.1)
[2022-05-17 14:04] LABS: Ferritin 20 ng/mL (15-150); Iron 43 ug/dL (37-145); Percent Saturation 10.6 % (20-50); Total Iron Binding Capacity 403 mcg/dl; Unsaturated Iron Binding 360 ug/dL (112-347)
== END 2022-05-18 23:59 | disposition home or self-care (01) ==
LOC: ONCMED 12:04
PROVIDERS: PCP Family Medicine; Visit Provider Internal Medicine Medical Oncology
DX: D64.9 Anemia, unspecified (principal)
CPT/HCPCS: 36415; 82728; 83540; 83550; 85025

== ENCOUNTER 2022-06-04 10:03 | Oncology outpatient (recurring) (ONCR) | payer MEDICAID, SELFPAY ==
[2022-05-25 13:12] VITALS: BP 143/89; PULSE 56; TEMP 36.2; O2SAT 98
[2022-05-25] MEDS: sodium chloride 0.9% 250 ML 75 ML IV (13:25)
[2022-05-25] MEDS: diphenhydrAMINE 50 mg/mL SDV 1mL 25 MG IVP (13:25)
[2022-05-25] MEDS: iron sucrose 200 MG in sodium chloride 0.9% (100 ml) 100 ML 220 MG IV (13:44)
[2022-05-25 14:28] VITALS: BP 150/93; PULSE 51; RESP 16; TEMP 36.4; O2SAT 98
[2022-05-27] MEDS: diphenhydrAMINE 50 mg/mL SDV 1mL 25 MG IVP (13:44)
[2022-05-27] MEDS: sodium chloride 0.9% 250 ML 75 ML IV (13:44)
[2022-05-27] MEDS: iron sucrose 200 MG in sodium chloride 0.9% (100 ml) 100 ML 220 MG IV (13:45)
[2022-05-27 14:30] VITALS: BP 136/78; PULSE 78; RESP 18; TEMP 36.6
[2022-05-31] MEDS: sodium chloride 0.9% 250 ML 100 ML IV (16:27)
[2022-05-31] MEDS: diphenhydrAMINE 50 mg/mL SDV 1mL 25 MG IVP (16:27)
[2022-05-31] MEDS: iron sucrose 200 MG in sodium chloride 0.9% (100 ml) 100 ML 220 MG IV (16:29)
[2022-05-31 17:00] VITALS: BP 138/90; PULSE 62; TEMP 36.3; O2SAT 96
[2022-06-02 15:29] VITALS: BP 129/80; PULSE 53; RESP 16; TEMP 36.2; O2SAT 95
[2022-06-02] MEDS: sodium chloride 0.9% (100 ml) 100 ML 75 ML (15:50)
[2022-06-02] MEDS: diphenhydrAMINE 50 mg/mL SDV 1mL 25 MG IVP (15:50)
[2022-06-02] MEDS: iron sucrose 200 MG in sodium chloride 0.9% (100 ml) 100 ML 220 MG IV (15:53)
[2022-06-02 16:23] VITALS: PULSE 57; RESP 16; TEMP 36.3; O2SAT 97
[2022-06-04] MEDS: diphenhydrAMINE 50 mg/mL SDV 1mL 25 MG IVP (10:39)
[2022-06-04] MEDS: iron sucrose 200 MG in sodium chloride 0.9% (100 ml) 100 ML 220 MG IV (10:39)
[2022-06-04 11:17] VITALS: BP 132/56; PULSE 50; RESP 16; TEMP 36.4; O2SAT 98
== END 2022-06-18 23:59 | disposition home or self-care (01) ==
PROVIDERS: PCP Family Medicine; Visit Provider Internal Medicine Medical Oncology
DX: D50.8 Other iron deficiency anemias (principal); Z79.899 Other long term (current) drug therapy
CPT/HCPCS: 96365; 96375; J1200; J1756; J7050

== ENCOUNTER 2022-06-21 10:25 | Oncology outpatient (recurring) (ONCR) | payer MEDICAID, SELFPAY ==
[2022-06-21 11:09] LABS: Basophils % 0.6 %; Eosinophils # 0.2 10^3/uL (0.0-0.8); Eosinophils % 7.4 %; Hematocrit 38.7 % (37.0-47.0); Hemoglobin 12.3 g/dL (11.5-15.3); Lymphocytes # 1.1 10^3/uL (0.8-4.8); Lymphocytes % 34.4 %; Mean Corpuscular HGB Conc 31.8 g/dL (30.0-36.0); Mean Corpuscular Hemoglobin 26.7 pg (28.0-34.0); Mean Corpuscular Volume 83.9 fl (81-99); Mean Platelet Volume 9.6 fL (7.4-10.4); Monocytes # 0.2 10^3/uL (0.2-0.9); Monocytes % 7.4 %; Neutrophils # 1.61 10^3/uL (1.8-7.7); Neutrophils % 49.9 %; Nucleated Red Blood Cells % 0 %; Platelet Count 106 10^3/cmm (130-400); Red Blood Count 4.61 10^6/uL (4.1-5.3); Red Cell Distribution Width 16.9 % (12.1-15.1); White Blood Count 3.2 10^3/uL (4.0-10.0)
[2022-06-21 11:27] LABS: Alanine Aminotransferase 36 U/L (0-33); Albumin Level 4.5 g/dL (3.5-5.2); Alkaline Phosphatase 44 U/L (35-105); Anion Gap 11.6 (5-19); Aspartate Amino Transferase 43 U/L (0-32); Blood Urea Nitrogen 18 mg/dL (6-20); Calcium 9.5 mg/dL (8.5-10.5); Carbon Dioxide 27 mmol/L (22-29); Chloride 99 mmol/L (98-107); Ferritin 171 ng/mL (15-150); Globulin 2.9 g/dL (1.3-4.6); Glomerular Filtration Rate 74.5 mL/min (90-130); Glucose 94 mg/dL (65-115); Iron 72 ug/dL (37-145); Osmolality Calculated 278 mOsm/kg (285-295); Percent Saturation 20.9 % (20-50); Potassium 4.6 mmol/L (3.5-5.1); Sodium 133 mmol/L (136-145); Total Bilirubin 0.5 mg/dL (0.15-1.2); Total Iron Binding Capacity 344 mcg/dl; Total Protein 7.4 g/dL (6.6-8.7); Unsaturated Iron Binding 272 ug/dL (112-347)
== END 2022-07-18 23:59 | disposition home or self-care (01) ==
PROVIDERS: Nurse Practitioner Family; PCP Family Medicine; Visit Provider Internal Medicine Medical Oncology
DX: D50.9 Iron deficiency anemia, unspecified; D61.818 Other pancytopenia
CPT/HCPCS: 36415; 80053; 82728; 83540; 83550; 85025

== ENCOUNTER 2022-07-07 05:16 | Outpatient (CLI) | payer MEDICAID, SELFPAY | END 2022-07-07 05:17 | disposition home or self-care (01) | LOC: SLEEP 07-08 05:17 | PROVIDERS: PCP Family Medicine; Visit Provider Family Medicine | DX: G47.10 Hypersomnia, unspecified (principal); G47.33 Obstructive sleep apnea (adult) (pediatric) | CPT/HCPCS: 95811 ==

== ENCOUNTER 2022-07-21 12:53 | Oncology outpatient (recurring) (ONCR) | payer MEDICAID, SELFPAY ==
[2022-07-21 13:38] LABS: Basophils % 0.6 %; Eosinophils # 0.2 10^3/uL (0.0-0.8); Eosinophils % 6.8 %; Hematocrit 38.7 % (37.0-47.0); Hemoglobin 12.6 g/dL (11.5-15.3); Lymphocytes # 1.1 10^3/uL (0.8-4.8); Lymphocytes % 29.6 %; Mean Corpuscular HGB Conc 32.6 g/dL (30.0-36.0); Mean Corpuscular Hemoglobin 27.9 pg (28.0-34.0); Mean Corpuscular Volume 85.6 fl (81-99); Mean Platelet Volume 9.7 fL (7.4-10.4); Monocytes # 0.3 10^3/uL (0.2-0.9); Monocytes % 7.9 %; Neutrophils # 1.96 10^3/uL (1.8-7.7); Neutrophils % 55.1 %; Nucleated Red Blood Cells % 0 %; Platelet Count 111 10^3/cmm (130-400); Red Blood Count 4.52 10^6/uL (4.1-5.3); Red Cell Distribution Width 16.8 % (12.1-15.1); White Blood Count 3.6 10^3/uL (4.0-10.0)
[2022-07-21 14:04] LABS: Alanine Aminotransferase 37 U/L (0-33); Albumin Level 4.1 g/dL (3.5-5.2); Alkaline Phosphatase 41 U/L (35-105); Anion Gap 13.8 (5-19); Aspartate Amino Transferase 35 U/L (0-32); Blood Urea Nitrogen 18 mg/dL (6-20); Calcium 9.4 mg/dL (8.5-10.5); Carbon Dioxide 27 mmol/L (22-29); Chloride 103 mmol/L (98-107); Globulin 2.7 g/dL (1.3-4.6); Glucose 86 mg/dL (65-115); Iron 83 ug/dL (37-145); Osmolality Calculated 289 mOsm/kg (285-295); Percent Saturation 25.5 % (20-50); Potassium 4.8 mmol/L (3.5-5.1); Sodium 139 mmol/L (136-145); Total Bilirubin 0.5 mg/dL (0.15-1.2); Total Iron Binding Capacity 325 mcg/dl; Total Protein 6.8 g/dL (6.6-8.7); Unsaturated Iron Binding 242 ug/dL (112-347)
== END 2022-08-18 23:59 | disposition home or self-care (01) ==
PROVIDERS: Nurse Practitioner Family; PCP Family Medicine; Visit Provider Internal Medicine Medical Oncology
DX: D50.9 Iron deficiency anemia, unspecified (principal); D61.818 Other pancytopenia
CPT/HCPCS: 36415; 80053; 83540; 83550; 85025

== ENCOUNTER 2022-07-22 14:42 | Outpatient (CLI) | payer MEDICAID, SELFPAY ==
--- NOTE | 2022-07-22 14:49 | MM_ITS ---
WS: [id number] BILATERAL 3D TOMOSYNTHESIS DIGITAL SCREENING MAMMOGRAPHY WITH CAD CLINICAL INFORMATION: SCREENING HISTORY: Screening mammogram. No current complaints. COMPARISON: 2010 TECHNIQUE: Bilateral CC and MLO views. FINDINGS: Scattered fibroglandular densities bilaterally. No suspicious focal mass, asymmetry, calcifications, or architectural distortion. No evidence of malignancy. Incidental punctate calcifications. MM/[place] [id number] IMPRESSION: BI-RADS: 2-Benign FOLLOW UP: 1 Year Follow-up Recommend return to annual screening mammography.
== END 2022-07-22 14:43 | disposition home or self-care (01) ==
LOC: RAD 14:44
PROVIDERS: PCP Family Medicine; Visit Provider Family Medicine
DX: Z12.31 Encounter for screening mammogram for malignant neoplasm of breast (principal)
CPT/HCPCS: 77063; 77067

== ENCOUNTER → 2022-08-11 10:16 | Outpatient (BNVA) | payer MEDICAID, SELFPAY | PROVIDERS: PCP Family Medicine; Visit Provider Internal Medicine Cardiovascular Disease | DX: R00.1 Bradycardia, unspecified (principal) | CPT/HCPCS: 93005 ==

== ENCOUNTER 2022-10-21 14:28 | Oncology outpatient (recurring) (ONCR) | payer MEDICAID, SELFPAY ==
[2022-10-20 15:27] VITALS: BMI 47.0
[2022-10-20 15:29] VITALS: BP 147/91; PULSE 63; RESP 18; TEMP 36.3; O2SAT 97
[2022-10-20 15:43] LABS: Basophils % 0.5 %; Eosinophils # 0.3 10^3/uL (0.0-0.8); Eosinophils % 6.5 %; Hematocrit 40.6 % (37.0-47.0); Hemoglobin 13.5 g/dL (11.5-15.3); Lymphocytes % 25.1 %; Mean Corpuscular HGB Conc 33.3 g/dL (30.0-36.0); Mean Corpuscular Hemoglobin 29.7 pg (28.0-34.0); Mean Corpuscular Volume 89.2 fl (81-99); Mean Platelet Volume 9.9 fL (7.4-10.4); Monocytes # 0.3 10^3/uL (0.2-0.9); Neutrophils # 2.32 10^3/uL (1.8-7.7); Neutrophils % 60.6 %; Nucleated Red Blood Cells % 0 %; Platelet Count 115 10^3/cmm (130-400); Red Blood Count 4.55 10^6/uL (4.1-5.3); Red Cell Distribution Width 13.6 % (12.1-15.1); White Blood Count 3.8 10^3/uL (4.0-10.0)
[2022-10-20 16:04] LABS: Alanine Aminotransferase 41 U/L (0-33); Albumin Level 4.5 g/dL (3.5-5.2); Alkaline Phosphatase 43 U/L (35-105); Anion Gap 14.7 (5-19); Aspartate Amino Transferase 36 U/L (0-32); Blood Urea Nitrogen 21 mg/dL (6-20); Calcium 10.4 mg/dL (8.5-10.5); Carbon Dioxide 27 mmol/L (22-29); Chloride 103 mmol/L (98-107); Ferritin 95 ng/mL (15-150); Glomerular Filtration Rate 74.2 mL/min (90-130); Glucose 98 mg/dL (65-115); Iron 78 ug/dL (37-145); Osmolality Calculated 293 mOsm/kg (285-295); Percent Saturation 20.8 % (20-50); Potassium 4.7 mmol/L (3.5-5.1); Sodium 140 mmol/L (136-145); Total Bilirubin 0.6 mg/dL (0.15-1.2); Total Iron Binding Capacity 375 mcg/dl; Total Protein 7.5 g/dL (6.6-8.7); Unsaturated Iron Binding 297 ug/dL (112-347)
== END 2022-11-18 23:59 | disposition home or self-care (01) ==
PROVIDERS: Nurse Practitioner Family; PCP Family Medicine; Visit Provider Internal Medicine Medical Oncology
DX: Z53.9 Procedure and treatment not carried out, unspecified reason (principal)
CPT/HCPCS: 36415; 80053; 82728; 83540; 83550; 85025

== ENCOUNTER → 2023-04-21 09:50 | Outpatient (BNVA) | payer MEDICAID, SELFPAY | PROVIDERS: PCP Family Medicine; Visit Provider Internal Medicine Rheumatology | DX: Z79.899 Other long term (current) drug therapy (principal); M17.12 Unilateral primary osteoarthritis, left knee; M21.611 Bunion of right foot | CPT/HCPCS: 36415; 73130; 73562; 73630; 80076; 82306; 82565; 83520; 85025; 86480; 86704; 86803; 87340; 87522 ==

== ENCOUNTER 2023-04-29 15:05 | Outpatient (CLI) | payer MEDICAID, SELFPAY ==
[2023-05-03 12:09] LABS: Hepatitis B Virus DNA NOT DETECTED (NOT DETECTED); Hepatitis B Virus DNA PCR NOT DETECTED Log IU/mL (NOT DETECTED)
== END 2023-04-29 15:06 | disposition home or self-care (01) ==
LOC: LAB 15:06
PROVIDERS: PCP Family Medicine; Visit Provider Internal Medicine Rheumatology
DX: R76.8 Other specified abnormal immunological findings in serum (principal)
CPT/HCPCS: 36415; 87517

== ENCOUNTER → 2023-08-01 12:23 | Outpatient (BNVA) | payer MEDICAID, SELFPAY | PROVIDERS: PCP Family Medicine; Visit Provider Internal Medicine Rheumatology | DX: M19.90 Unspecified osteoarthritis, unspecified site (principal); Z79.899 Other long term (current) drug therapy; B19.20 Unspecified viral hepatitis C without hepatic coma; K74.60 Unspecified cirrhosis of liver; K90.0 Celiac disease; I85.00 Esophageal varices without bleeding | CPT/HCPCS: 36415; 80076; 82085; 82550; 82565; 85025; 85651; 86140 ==

== ENCOUNTER 2023-08-19 15:11 | Outpatient (CLI) | payer MEDICAID, SELFPAY ==
[2023-08-19 15:59] LABS: Erythrocyte Sedimentation Rate 3 mm/hr (0-15)
[2023-08-19 16:43] LABS: Creatine Phosphokinase 452 U/L (26-192)
== END 2023-08-19 15:12 | disposition home or self-care (01) ==
LOC: LAB 15:14
PROVIDERS: PCP Family Medicine; Visit Provider Internal Medicine Rheumatology
DX: Z79.899 Other long term (current) drug therapy (principal); M19.90 Unspecified osteoarthritis, unspecified site; M62.81 Muscle weakness (generalized)
CPT/HCPCS: 82085; 82550; 84182; 85651; 86140; 86235

== ENCOUNTER 2023-08-29 14:27 | Outpatient (CLI) | payer MEDICAID, SELFPAY | END 2023-08-29 14:28 | disposition home or self-care (01) | LOC: LAB 14:31 | PROVIDERS: PCP Family Medicine; Visit Provider Internal Medicine Rheumatology | DX: Z01.89 Encounter for other specified special examinations (principal); Z79.899 Other long term (current) drug therapy | CPT/HCPCS: 36415; 82657 ==

== ENCOUNTER 2023-09-05 15:14 | Outpatient (CLI) | payer MEDICAID, SELFPAY | END 2023-09-05 15:15 | disposition home or self-care (01) | LOC: LAB 15:15 | PROVIDERS: PCP Family Medicine; Visit Provider Internal Medicine Rheumatology | DX: Z79.899 Other long term (current) drug therapy (principal) | CPT/HCPCS: 36415; 82657 ==

== ENCOUNTER 2023-10-26 15:12 | Outpatient (CLI) | payer MEDICAID, SELFPAY ==
[2023-10-26 15:44] LABS: Eosinophils % 0.2 %; Hematocrit 38.8 % (36-47); Lymphocytes # 0.5 10^3/uL (0.8-4.8); Lymphocytes % 12.6 %; Mean Corpuscular HGB Conc 33.2 g/dL (30-55); Mean Corpuscular Hemoglobin 29.8 pg (27-33); Mean Corpuscular Volume 89.6 fl (85-98); Mean Platelet Volume 10.9 fL (7.4-10.4); Monocytes # 0.2 10^3/uL (0.2-0.9); Monocytes % 4.9 %; Neutrophils # 3.38 10^3/uL (1.8-7.7); Neutrophils % 82.1 %; Nucleated Red Blood Cells % 0 %; Platelet Count 103 10^3/cmm (157-399); Red Blood Count 4.33 10^6/uL (3.85-5.65); Red Cell Distribution Width 14.6 % (12.1-15.1); White Blood Count 4.12 10^3/uL (3.29-11.43)
[2023-10-26 15:48] LABS: Erythrocyte Sedimentation Rate 1 mm/hr (0-15)
[2023-10-26 15:58] LABS: Alanine Aminotransferase 29 U/L (0-33); Albumin Level 4.3 g/dL (3.5-5.2); Alkaline Phosphatase 47 U/L (35-105); Aspartate Amino Transferase 16 U/L (0-32); Creatine Phosphokinase 55 U/L (26-192); Globulin 2.6 g/dL (1.3-4.6); Glomerular Filtration Rate 57.1 mL/min (90-130); Total Bilirubin 0.5 mg/dL (0.15-1.2); Total Protein 6.9 g/dL (6.6-8.7); Uric Acid 6.8 mg/dL (2.4-5.7)
[2023-10-28 14:19] LABS: Aldolase 3.8 U/L (< OR = 8.1)
== END 2023-10-26 15:13 | disposition home or self-care (01) ==
LOC: LAB 15:15
PROVIDERS: PCP Family Medicine; Visit Provider Internal Medicine Rheumatology
DX: Z79.899 Other long term (current) drug therapy (principal); M19.90 Unspecified osteoarthritis, unspecified site
CPT/HCPCS: 36415; 80076; 82085; 82550; 82565; 84550; 85025; 85651; 86140

== ENCOUNTER 2023-12-23 10:00 | Outpatient (CLI) | payer MEDICAID, SELFPAY ==
--- NOTE | 2023-12-23 10:00 | US_ITS ---
WS: [id number] Complete ABDOMINAL ULTRASOUND HISTORY: R10.9 - Unspecified abdominal pain COMPARISON: None available. Liver: 21.3 cm in length. Significantly limited evaluation of the liver due to body habitus. There is severe fatty infiltration with low-attenuation throughout the entire liver. Small amount of adjacent ascites. Portal Vein: Normal hepatopetal flow with monophasic waveform. Gallbladder: Cholecystectomy. CBD: 0.5 cm Pancreas: Not visualized. Right kidney: 11.0 cm x 6.4 x 5.3 cm. Cortex:1.4 cm. Kidney is normal size but otherwise poorly visualized. It would be difficult to exclude mass. Left kidney: 10.0 cm x 4.7 cm x 4.7 cm. Cortex: 1.2 cm. Normal size and echogenicity. No hydronephrosis or mass. Spleen: 20.4 cm. Markedly enlarged spleen. No mass. Aorta and IVC: Not visualized. US/US abdomen complete* [id number] Impression: 1. Significantly limited evaluation of the abdominal structures due to patient 's body habitus. 2. Marked hepatosplenomegaly. Severe fatty infiltration of the liver. Similar to the prior CT from 03/19/2022. 3. Small amount of ascites adjacent to the liver. The entire liver parenchyma is poorly visualized. 4. Cirrhotic configuration. 5. Prior cholecystectomy.
== END 2023-12-23 10:04 | disposition home or self-care (01) ==
PROVIDERS: PCP Family Medicine; Visit Provider Internal Medicine Rheumatology
DX: R16.0 Hepatomegaly, not elsewhere classified (principal); R16.1 Splenomegaly, not elsewhere classified; K76.0 Fatty (change of) liver, not elsewhere classified; K74.60 Unspecified cirrhosis of liver; R10.9 Unspecified abdominal pain
CPT/HCPCS: 76700

== ENCOUNTER 2024-09-12 12:09 | Inpatient (IN) | payer MEDICAID, SELFPAY ==
--- OUTSIDE RECORDS SUMMARY | 2024-05-03 05:30 | XMS_ITS ---
Author Organization [facility] Address [address] [place] [address] Care Team Providers Care Mirror Fabrication Supervisor Name Role Phone Astrid CAMILO, Deacon Primary Care Provider Agapito Cantor Unavailable [phone] REASON FOR VISIT Esophageal varices without bleeding, unspecified esophageal varices type - Medications Medication SIG (Take, Route, Frequency, Duration) Notes Start Date End Date Status ZyrTEC Allergy 10 MG 1 tablet Orally Once a day Active Vitamin D 50,000mg 1 tablet weekly Active predniSONE 5 MG 1 tablet Orally Once a day Active Centrum Adults - 1 tablet Orally daily Active Hydroxychloroquine Sulfate 200 MG as directed Orally Twice a day Not-Taking Nadolol 20 MG Take 1 tablet by mouth once daily for 30 Active Pantoprazole Sodium 40 MG 1 tablet Orall y Once a day Active Spironolactone 50 MG 1 tablet Orally Once a day Active Encounters Encounter Location Date Provider Diagnosis [facility] [address] [place] [address] 05/03/2024 Agapito Rojas Plan Of Treatment No Information Progress Notes * SAURAV ToryaDOB:1965 ( 58 yo F)Acc No.[id number]:05/03/2024 History and Physical Patient: Shelby HERNANDEZ Provider: Sarah Rojas MD :1965 A ge:58 Y S ex:Female Date:05/03/2024 Address:[address], [id number] Pcp:Deacon Resendiz MD Check Out:08:50 AM [employer] Subjective: * Chief Complaints: * 1 . Esophageal varices without bleeding, unspecified esophageal varices type -. * Medical History: * Medications: T aking Centrum Adults - Tablet 1 tablet Orally daily , Taking predniSONE 5 MG Tablet 1 tablet Orally Once a day , Taking Vitamin D , Notes to Pharmacist: 50,000mg 1 tablet weekly, Taking ZyrTEC Allergy 10 MG Tablet 1 tablet Orally Once a day , Taking Spironolactone 50 MG Tablet 1 tablet Orally Once a day , Taking Pantoprazole Sodium 40 MG Tablet Delayed Release 1 tablet Orally Once a day , Taking Nadolol 20 MG Tablet Take 1 tablet by mouth once daily , Not-Taking Hydroxychloroquine Sulfate 200 MG Tablet as directed Orally Twice a day Objective: * Vitals: Assessment: Plan: * Treatment: * Billing Information: * Visit Code: * Procedure Codes: * Electronic signature of Obdulia Rojas MD on 09/12/2024 at 12:36 PM CDT Sign off status: Pending * Provider: Sarah Rojas MD Date: 0 05/03/2024 Generated for Gilberto portillo/Devi/Silvia on: 0 09/12/2024 12:36 PM CDT
--- OUTSIDE RECORDS SUMMARY | 2024-06-13 09:00 | XMS_ITS ---
Author Organization [facility] Address [address] [place] [address] Care Team Providers Care Scratcher Tender Name Role Phone Astrid CAMILO, Deacon Primary Care Provider Agapito Cantor Unavailable [phone] REASON FOR VISIT 1 year f/u Cirrhosis Encounters Encounter Location Date Provider Diagnosis [facility] [address] [place] [address] 06/13/2024 Agapito Rojas Plan Of Treatment No Information Progress Notes * Tory MEYERaDOB:1965 ( 58 yo F)Acc No.[id number]:06/13/2024 Progress Notes Patient: Shelby HERNANDEZ Provider: Sarah Rojas MD :1965 A ge:58 Y S ex:Female Date:06/13/2024 Address:[address] [id number] Pcp:Deacon Resendiz MD Subjective: * Chief Complaints: * 1 . 1 year f/u Cirrhosis. * Medical History: Objective: * Vitals: Assessment: Plan: * Treatment: * Billing Information: * Visit Code: * Procedure Codes: * Electronic signature of Obdulia Rojas MD on 09/12/2024 at 12:37 PM CDT Sign off status: Pending * Provider: Sarah Rojas MD Date: 06/13/2024 Generated for Printi ng/Faannamariag/eTransmitting on: 0 09/12/2024 12:37 PM CDT
[2024-09-12] VITALS (8 sets, daily range): BP systolic 127–135; BP diastolic 75–89; PULSE 45–66; RESP 14–20; TEMP 36.5–36.7; O2SAT 93–99; BMI 49.2
--- NOTE | 2024-09-12 12:12 | ECG_ITS ---
[facility]: 2024-09[facility]12 Pat Name: Shelby Mg Department: Room: Gender: Female E Commerce Analyst: : 1965 Requested By: Deondre Rodriguez Order Number: [id number] Reading MD: Measurements Intervals [place] Rate: 45 P: 22 NJ: 152 QRS: 52 QRSD: 98 T: 64 QT: 412 QTc: 358 Interpretive Statements SINUS BRADYCARDIA POSSIBLE LATERAL MYOCARDIAL INFARCTION , OF INDETERMINATE AGE [30 ms Q WAVE IN I/aVL/V5/V6] No previous ECG available for comparison [email or web address]
--- NOTE | 2024-09-12 12:12 | XR_ITS ---
WS: [id number] Exam: XR chest 1V portable [id number] Date/Time of Exam: 09/12/2024 12:12 PM Reason For Exam: weakness Comparison 03/18/2022. Lungs are clear and fully expanded. Normal cardiomediastinal silhouette. Bony structures appear normal. No pleural effusion. XR/XR chest 1V portable [id number] IMPRESSION: 1. Negative chest.
[2024-09-12 12:31] LABS: Basophils # 0.1 10^3/uL (0.0-0.1); Basophils % 1.2 %; Eosinophils # 0.5 10^3/uL (0.0-0.8); Eosinophils % 7.5 %; Hematocrit 42.6 % (36-47); Lymphocytes # 1.3 10^3/uL (0.8-4.8); Lymphocytes % 21.4 %; Mean Corpuscular HGB Conc 32.2 g/dL (30-55); Mean Corpuscular Hemoglobin 28.3 pg (27-33); Mean Platelet Volume 10.4 fL (7.4-10.4); Monocytes # 0.5 10^3/uL (0.2-0.9); Neutrophils # 3.62 10^3/uL (1.8-7.7); Neutrophils % 60.6 %; Nucleated Red Blood Cells % 0 %; Platelet Count 139 10^3/cmm (157-399); Red Blood Count 4.84 10^6/uL (3.85-5.65); Red Cell Distribution Width 13.8 % (12.1-15.1); White Blood Count 5.98 10^3/uL (3.29-11.43)
--- OUTSIDE RECORDS SUMMARY | 2024-09-12 12:37 | XMS_ITS | Data Portability ---
Author Organization [place] [facility] Address [address] [place] [address] [place] [address] Care Team Providers Care Sustainability Engineer Name Role Phone BITA RESENDIZ Primary Care Provider [phone] Assessment Encounter Date Assessment Date Assessment LastModified by Organization Details LastModified Time 05/17/2023 05/17/2023 Patient presented for medication refill. Patient tolerating medication well at current dose without adverse effects. Refilled as below. Discussed plan with patient, who expressed understanding . Follow up as noted below. [email or web address] Not available 05/18/2023 17:02:17 Plan of Treatment Reminders Order Date Submit Date Provider Last Modified By Organization Details Last Modified Time Details Appointments OFFICE VISIT 15 2024 03:00P Alejandro Resendiz MD Not available Not available Not available Lab urinalysi s, complete 2023 [facility] [address] [place] [address], [address], 01/18/2024 13:15:47 culture, urine 2023 024 [facility], [address] [place] [address], [address], [place], [address], 01/19/2024 23:38:35 ccp (cyclic citrullin ated peptide) igg, serum 2022 023 [facility], [address] [place] [address] 248, [address], [place], [address], 11/19/2022 08:56:00 GABBI (antinucl ear antibodie s) screen, serum 2022 023 [facility] [employer] [facility], [address], [address] , [place], [address], 11/19/2022 08:56:00 rf (rheumato id factor), serum 2022 023 [facility], [address], [address] C, [place], [address], 11/19/2022 08:56:00 Referral rheumatol ogist referral 2022 023 [email or web address] Joel Leiva MD, [address] [place] [address], [address], 01/12/2023 17:50:00 Procedures None recorded. Surgeries None recorded. Imaging None recorded. Medication Orders Zepbound 2.5 mg/0.5 mL subcutane ous pen injector 2024 025 [facility] 15, [address], [place], [address], 09/05/2024 18:05:10 Bactrim DS 800 mg-160 mg tablet 2024 025 [facility] 15, [address], [place], [address], 09/05/2024 18:01:08 clobetaso l 0.05 % topical ointment 2024 025 [facility] 15, [address], [place], [address], 09/05/2024 18:01:09 spironola ctone 50 mg tablet [address] [facility] 15, [address], [place], [address], 01/19/2024 08:33:35 pantopraz ole 40 mg tablet,de layed release 2023 024 [facility] [address], [place], [address], 05/17/2023 09:48:21 Patient TargetsNo targets recorded. Patient InstructionsNo instructions recorded. Reason for Referral [employer] Referral for Polyarthropathy Referring Physician: Bita Resendiz, Family Medicine, Encounter Date: 11/12/2022 Results Created Date Observation Date Name Description Value Unit Range Abnormal Flag Note LastModifiedBy Organization Detail LastModifiedTime 11/13/1911/19/2022 GABBI SCR,I FA W/REF L TITER JEAN-PAULTE RN/MP X11AB /IDEN TRA GABBI screen, ifa NEGATI VE negati ve normal GABBI IFA is a first line scree n for detec ting the prese nce of up to appro ximat prabhakar 150 autoa ntibo dies in vario us autoi mmune disea ses. A negat debbie GABBI IFA resul t sugge sts an GABBI-a ssoci ated autoi mmune disea se is not prese nt at this time, and does not refle x furth er. If there is high clini marcial suspi cion for Sjogr en's syndr ome, testi ng for anti- SS-A/ Ro antib mikki shoul d be consi dered . Anti- Anni-1 antib mikki shoul d be consi dered for clini tess suspe cted infla mmato ry myopa burt . AC-0: Negat debbie Inter natio nal Conse nsus on GABBI Tomlinson rns (http s://d oi.or g/10. 1515/ [facility]- 2017- 0052) For addit ional infor sarah chong refer to http: //[facility] tabby harper.Que stDia gnost ics.c om/fa q/FAQ 177 (This link is being provi ded for infor sarah rodriguez/ educa manoj l purpo ses only. ) Not Available [facility] [place], [address], 11/19/2022 11:36:34 11/13/19 23 11/19/2022 GABBI SCR,I FA W/REF L TITER PATTE RN/MP X11AB /IDEN TRA rheumatoid factor <14 IU/mL <14 normal Not Available [place] [address] [place], [address], 11/19/2022 11:36:34 11/13/19 23 11/19/2022 GABBI SCR,I FA W/REF L TITER PATTE RN/MP X11AB /IDEN TRA cyclic citrullinate d peptide (ccp) Ab (IgG) <16 units normal Refer ence Range Negat debbie: <20 Weak Posit debbie: 20-39 Moder ate Posit debbie: 40-59 Stron g Posit debbie: >59 Not Available [address], [address], 11/19/2022 11:36:34 11/13/19 23 11/19/2022 GABBI SCR,I FA W/REF L TITER PATTE RN/MP X11AB /IDEN TRA 14.3.3 ETA protein <0.2 NG/mL <0.2 The 14-3- 3eta prote in is a marke r of synov ial infla mmati on that is relea sed into synov ial fluid and perip heral blood in rheum atoid arthr itis (RA) and erosi ve psori atic arthr itis. One in five RF and CCP seron egati ve early stage RA patie nts is found to be posit debbie for 14-3- 3eta prote in. Patie nts with activ e joint RA disea se have highe r value s of 14-3- 3eta prote in than those with inact debbie RA or psori asis witho ut arthr itis. 14-3- 3eta prote in has a 93% speci ficit y in patie nts with RA. Value s > or = 0.2 ng/mL are eleva elpidio and indic ative of RA disea se or erosi ve psori atic arthr itis. Value s >0.50 ng/mL are assoc iated with more aggre ssive RA disea se and jimi r outco mes. Unlik e RF and CCP, 14-3- 3eta prote in is a thera peuti tess modif iable marke r to monit or respo nse to thera py. A decre ase in 14-3- 3eta prote in in respo nse to DMARD s (dise ase-m odify ing antir heuma tic drugs ) and anti- TNF (tumo r necro sis facto r) drugs indic ates satnam r clini marcial outco mes; an incre ase is assoc iated with worse outco mes despi te appar ent clini marcial remis raheem. For fur er infor sarah smith e visit : http: //www .ques tdiag nosti cs.co m/olayinka tcent er/te stgui de.ac tion? dc=TS -RmAr thPnl This test was devel oped and its faisal tical perfo rmanc e mimi cteri stics have been deter mined by [facility] tran . It has not been clear ed or appro earnest by FDA. This assay has been valid ated pursu ant to the CLIA regul ation s and is used for clini marcial purpo ses. Not Available [facility] [address] [place], [address], 11/19/2022 11:36:34 01/18/20 24 01/19/2024 CULTU RE, URINE , ROUTI NE culture, urine, routine SEE NOTE CULTU RE, URINE , ROUTI NE Micro Numbe r: [id number] Test Statu s: Final Speci men Sourc e: Urine Speci men Quali ty: Adequ ate Resul t: Mixed genit al claire isola elpidio. These super ficia l bacte christopher are not indic ative of a urina ry tract infec tion. No [facility] er organ ism ident ifica tion is warra nted on this speci men. If clini tess indic ated, recol lect clean -catc h, mid-s tream urine and trans jaylon immed iatel y to Urine Cultu re Trans port Tube. Not Available [facility] [address] [place], [address], 01/19/2024 23:38:35 01/18/2001/18/2024 urina lysis , compl ete color yellow Not Available [facility] ([facility]) [address] [place], [address], 01/18/2024 12:36:47 01/18/2001/18/2024 urina lysis , compl ete clarity clear clear normal Not Available [facility] ([facility]) [address] [place] [address], [address], 01/18/2024 12:36:47 01/18/2001/18/2024 urina lysis , compl ete glucose negati ve negati ve normal Not Available [facility] ([facility]) [address] [place] [address], [address], 01/18/2024 12:36:47 01/18/2001/18/2024 urina lysis , compl ete bilirubin negati ve negati ve normal Not Available [facility] ([facility]) [address] [place] [address], [address], 01/18/2024 12:36:47 01/18/2001/18/2024 urina lysis , compl ete ketones negati ve negati ve normal Not Available [facility] ([facility]) [address] [place] [address], [address], 01/18/2024 12:36:47 01/18/2001/18/2024 urina lysis , compl ete specific gravity 1.015 1.005- 1.025 normal Not Available [facility] ([facility]) [address] [place] [address], [address], 01/18/2024 12:36:47 01/18/20 24 01/18/2024 urina lysis , compl ete pH 5.5 5.0-7. 0 normal Not Available [facility] ([facility]) [address] [place], [address], 01/18/2024 12:36:47 01/18/20 24 01/18/2024 urina lysis , compl ete protein negati ve Not Available [facility] ([facility]) [address] [place], [address], 01/18/2024 12:36:47 01/18/2001/18/2024 urina lysis , compl ete uro 0.2 E.U./d L Not Available [facility] ([facility]) [address] [place], [address], 01/18/2024 12:36:47 01/18/20 24 01/18/2024 urina lysis , compl ete nitrate negati ve negati ve normal Not Available [facility] ([facility]) [address] [place], [address], 01/18/2024 12:36:47 01/18/20 24 01/18/2024 urina lysis , compl ete blood negati ve negati ve normal Not Available [facility] ([facility]) [address] [place], [address], 01/18/2024 12:36:47 01/18/20 24 01/18/2024 urina lysis , compl ete leukocytes negati ve negati ve normal Not Available [facility] ([facility]) [address] [place], [address], 01/18/2024 12:36:47 01/18/20 24 01/18/2024 urina lysis , compl ete WBC 4-6 0 low Not Available [facility] ([facility]) [address] [place], [address], 01/18/2024 12:36:47 01/18/20 24 01/18/2024 urina lysis , compl ete RBC 1-2 0 low Not Available [facility] ([facility]) [address] [place], [address], 01/18/2024 12:36:47 01/18/2001/18/2024 urina lysis , compl ete epi cells 20-25 0 high Not Available [facility] ([facility]) [address] [place], [address], 01/18/2024 12:36:47 01/18/20 24 01/18/2024 urina lysis , compl ete bacteria trace of mixed claire Not Available [facility] ([facility]) [address] [place], [address], 01/18/2024 12:36:47 01/18/2001/18/2024 urina lysis , compl ete other 1+ amorph ous Not Available [facility] ([facility]) [address] [place], [address], 01/18/2024 12:36:47 Result Notes None recorded. Problems Name Problem SNOMED Code Status Onset Date Resolution Date Notes Provider Name and Address Organization Details Recorded Time Hypoxia 164480230 Active 2022 HYPOXIA; 03/26/2022 11:38AM by Cortney Ralph, Office Visit; Promoted; acuity set as *; CORTNEY ramirez [facility] 3 17:25:09 Esophageal varices without bleeding 75699215 Active 2022 ESOPHAGEAL VARICES; Impression : Patient was instructed to present to the ED with concerns for bleeding.; Recorded 03/26/2022 1:34PM by Bita Resendiz MD, Office Visit; Promoted; acuity set as *; CORTNEY ramirez [facility] 3 17:24:45 Viral hepatitis C 56337453 Active 2022 HEPATITIS C; 03/26/2022 11:37AM by Cortney Ralph, Office Visit; Promoted; acuity set as *; HEPATITIS C; Impression : check labs. Patient may meet criteria for newer treatments if still infected.; Recorded 02/02/2022 4:49PM by Bita Resendiz MD, Office Visit; Promoted; acuity set as *; ; Start Date : 02/02/2022 [facility] 17:25:14 Obstructiv e sleep apnea syndrome 86881928 Active 2022 OBSTRUCTIV E SLEEP APNEA; Impression : We will attempt to get sleep study results and order new CPAP and supplies.; Recorded 03/29/2022 10:24AM by Cortney Ralph, Historical Summary; Promoted; acuity set as *; CORTNEY ramirez [facility] 3 17:25:01 Ulcerative colitis 17803046 Active 2022 ULCERATIVE COLITIS; 03/26/2022 11:38AM by Cortney Ralph, Office Visit; Promoted; acuity set as *; CORTNEY RALPH ashley [facility] 3 17:25:05 Gastroesop hageal reflux disease 770430733 Active 2022 GERD (GASTROESO PHAGEAL REFLUX DISEASE); Recorded 05/13/2022 10:23AM by Cortney Ralph, Historical Summary; Promoted; acuity set as *; CORTNEYSA RAMO ramirez [facility] 3 17:24:52 Hypertensi ve disorder 83198448 Active 2021 HYPERTENSI ON; Impression : blood pressure is elevated today and the patient was encouraged to monitor at home and keep a log to bring to next visit in 2 weeks.; Recorded 02/02/2022 4:47PM by Bita Resendiz MD, Office Visit; Promoted; acuity set as *; CORTNEYSA RAMO ramirez, [facility] 3 17:24:57 Polyarthro roldan 25859438 Active 2022 Bita Resendiz MD [address] [place] [address], [address], [facility] 3 16:19:14 Celiac disease 234421265 Active 2023 CORTNEY RAMO ramirez [facility] 4 10:03:59 Dysuria 05652437 Active 2023 Bita Resendiz MD [address] [place] [address], [address], [facility] 4 12:36:44 Ascites 328530972 Active 2023 Bita Resendiz MD [address] [place] [address], [address], [facility] 4 08:31:01 Steatotic liver disease 767527194 Active 2023 Bita Resendiz MD [address] [place] [address], [address], [facility] 4 08:31:30 Cirrhosis of liver 06679615 Active 2023 Bita Resendiz MD [address] [place] [address], [address], [facility] 4 08:31:40 Louse infestatio n 399973964 Active 2024 Bita Resendiz MD [address] [place] [address], [facility] 5 17:59:54 Lichen sclerosus 260036652 Active 2024 Bita Resendiz [place], [address], [facility], L.L.CElla 5 18:00:03 Furuncle 883589850 Active 2024 Bita Resendiz MD [address] [place], [address], [facility], LEllaLEllaCElla 5 18:00:25 Body mass index 40+ - severely obese 183459128 Active 2024 Bita Resendiz MD [address] [place], [address], [facility], KaylanLEllaCElla 5 18:04:31 Problem Notes None recorded. Medical Equipment None Reported. Allergies Allergen ID Allergen Name Allergen Category Reaction Reaction Severity Criticality Documentation Date Start Date Code Code System Note Provider Name and Address Organization Details Recorded Time 36295 codeine sulfate medicatio n chest pain Not available Not available 10/16/2022 91337 RxNorm React ion: Chest pain, Hives , Rash; Comme nt: Recor ded 02/02 2:20P M by Marcelo Ralph Offic e Visit ; Reyes magallanes; Shaun ramirez ce: *; Reaso n: Drug aller gy; ; Not Available [facility] 3 02:24:01 96755 ibuprofen medicatio n Not available Not available Not available 10/16/2022 5640 RxNorm Comme nt: Recor ded 03/26 11:38 AM by Marcelo Ralph Offic e Visit ; Promo elpidio; Signi ashley ce: *; Reaso n: Drug aller gy; ; Not Available [facility] 3 02:24:03 96858 Keflex medicatio n swelling Not available low 11/12/2022 22885 7 RxNorm CORTNEY ramirez [facility] 3 16:02:26 [address]4940 wheat gluten extract food Not available Not available Not available 01/18/2024 23570 81 RxNogalen ramirez [facility], .LVince 4 12:17:37 Medications Name Sig Start Date Stop Date Status Note LastModified by Organization Details LastModified Time pilocarpi ne 5 mg tablet TAKE 1 TABLET BY MOUTH THREE TIMES DAILY active Not Available Not Available No t Available prednison e 10 mg tablet TAKE 1 & 1/2 (ONE & ONE-HALF ) TABLETS BY MOUTH ONCE DAILY FOR 7 DAYS THEN 1 ONCE DAILY FOR 7 DAYS THEN 1/2 (ONE-JOVANA F) ONCE DAILY THEREAFT ER 01/17 completed decrease d to 5mg Not Available Not Available Not Available cetirizin e 10 mg tablet TAKE 1 TABLET BY MOUTH ONCE DAILY active Not Available Not Available No t Available prednison e 5 mg tablet TAKE 1 TABLET BY MOUTH ONCE DAILY active Not Available Not Available No t Available azathiopr ine 50 mg tablet TAKE 1 TABLET BY MOUTH TWICE DAILY 01/17 completed Not Available Not Available Not Available tramadol 50 mg tablet every six hours, as needed 01/17 completed 0; Recorded 03/26/19 23 11:41AM by Cortney Ralph, Office Visit; Not Available Not Available Not Available nadolol 20 mg tablet TAKE 1 TABLET BY MOUTH ONCE DAILY active Not Available Not Available No t Available pantopraz ole 40 mg tablet,de layed release TAKE 1 TABLET BY MOUTH TWICE DAILY active Not Available Not Available No t Available hyoscyami ne sulfate 0.125 mg tablet TAKE 1 TABLET BY MOUTH EVERY 4 HOURS FOR 7 DAYS NEEDED FOR SPASM 01/17 completed Not Available Not Available Not Available clobetaso l 0.05 % topical ointment APPLY A THIN LAYER TO THE AFFECTED AREA(S) BY TOPICAL ROUTE 2 TIMES PER DAY 2024 active Not Available Not Available Not Avai lable hydroxych loroquine 200 mg tablet TAKE 1 TABLET BY MOUTH TWICE DAILY 01/17 completed Not Available Not Available Not Available spironola ctone 50 mg tablet TAKE 1 TABLET BY MOUTH TWICE DAILY active Not Available Not Available No t Available metoclopr amide 10 mg tablet TAKE ONE TABLET BY MOUTH 30 minutes prior TO STARTING prep 01/17 completed Not Available Not Available Not Available Bactrim DS 800 mg-160 mg tablet Take 1 tablet every 12 hours by oral route. 2024 active Not Available Not Available Not Avai lable hyoscyami ne sulfate every four hours 11/12 completed 0; Recorded 03/26/19 11:42AM by Cortney Ralph, Office Visit; Not Available Not Available Not Available Multivita mins daily active 0; Recorded 03/26/19 11:43AM by Cortney Ralph, Office Visit; Not Available Not Available Not Available cholecalc iferol (vitamin D3) 1,250 mcg (50,000 unit) capsule TAKE 1 CAPSULE BY MOUTH ONCE EVERY 7 DAYS active Not Available Not Available No t Available GaviLyte- G 236 gram-22.7 4 gram-6.74 gram-5.86 gram oral solution USE DIRECTED and split DOSE in TWO DAYS 11/12 completed Not Available Not Available Not Available Zepbound 2.5 mg/0.5 mL subcutane ous pen injector INJECT 2.5MG SUB-Q WEEKLY active Not Available Not Available No t Available Vitals Date Recorded Body height Respiratory rate Body mass index (BMI) Body weight Body temperature Heart rate Oxygen saturation Oxygen saturation in Arterial blood by Pulse oximetry Systolic blood pressure Diastolic blood pressure Provider Name and Address Organization Details Last Updated DateTime 4 170.18 cm 20 /min 48.4 kg/m2 763291. 04 g 97.4 [degF] 58 /min 95 % 95 % 134 mm[Hg] 80 mm[Hg] CORTNEY RAMONew [facility] 4 09:37:08 Date Recorded Body height Body mass index (BMI) Body weight Body temperature Oxygen saturation Oxygen saturation in Arterial blood by Pulse oximetry Heart rate Systolic blood pressure Diastolic blood pressure Provider Name and Address Organization Details Last Updated DateTime 5 170.18 cm 48.1 kg/m2 262472. 86 g 97.3 [degF] 99 % 99 % 62 /min 122 mm[Hg] 100 mm[Hg] [facility] 5 17:24:46 Date Recorded Body height Respiratory rate Body mass index (BMI) Body weight Body temperature Heart rate Oxygen saturation Oxygen saturation in Arterial blood by Pulse oximetry Systolic blood pressure Diastolic blood pressure Provider Name and Address Organization Details Last Updated DateTime 3 170.18 cm 20 /min 47.8 kg/m2 558307. 07 g 97.1 [degF] 58 /min 96 % 96 % 112 mm[Hg] 70 mm[Hg] CORTNEY RALPH [facility] 3 16:06:10 Date Recorded Body height Body mass index (BMI) Body weight Body temperature Oxygen saturation Oxygen saturation in Arterial blood by Pulse oximetry Heart rate Systolic blood pressure Diastolic blood pressure Provider Name and Address Organization Details Last Updated DateTime 4 170.18 cm 49.3 kg/m2 376834. 6 g 97.6 [degF] 96 % 96 % 61 /min 128 mm[Hg] 82 mm[Hg] EMIL JONES [facility] 4 12:22:52 Social History Question Answer Notes LastModified by Affirm Details LastModified Time Tobacco Smoking Status Never Smoker EMIL JONES [facility] 01/18/2024 12:20:22 What Is Your Level Of Caffeine Consumption? Moderate Information not available 01/18/2024 What Type Of Diet Are You Following? GLUTENFREE Information not available 01/18/2024 What Was The Date Of Your Most Recent Tobacco Screening? 09/05/2024 [email or web address] Information not available 09/05/2024 What Is Your Relationship Status? Single Information not available 01/18/2024 Sex: Unknown Functional Status Question Answer Note LastModified by Affirm Details LastModified Time Do you use any illicit or recreational drugs? No Information not available 01/18/2024 What is your level of alcohol consumption? None Information not available 01/18/2024 Are you currently employed? No Information not available 01/18/2024 Are you able to walk? YESWOREST Information not available 01/18/2024 Are you able to care for yourself? Yes Information n ot available 01/18/2024 Mental Status None recorded. Family History Nothing Reported. Medical History No medical history recorded. Gynecological HistoryNo gynecological history recorded. Obstetrics History GPAL:G 0 P 0 0 0 0 Past Encounters Encounter ID Performer Location Encounter Start Date Encounter Closed Date Diagnosis/Indication Diagnosis SNOMED-CT Code Diagnosis ICD10 Code Diagnosis Note [id number] Bita Resendiz MD [facility] ([facility]) [address] [place] [phone] 11/12/2022 15:55:54 11/21/2022 09:09:12 Obstructive sleep apnea syndrome 64413400 G47.33 Patient is compliant with her use for CPAP. The patient exceeding the minimum guidelines for compliance . Continue CPAP with no changes. Polyarthropathy 54056909 M13.0 Will start work-up with lab work. We will also send in referral to rheumatsiddhartha daly. [id number] Bita Resendiz MD [facility] ([facility]) [address] [place] [phone] 05/17/2023 09:29:03 05/17/2023 09:54:53 Gastroesophageal reflux disease 169313533 K21.9 [id number] Bita Resendiz MD [facility] ([facility]) [address] [place] [phone] 01/18/2024 11:59:24 01/18/2024 13:04:03 Dysuria 58663525 R30.0 Check UA and culture. Ascites 695328698 R18.8 Steatotic liver disease 050644134 K76.0 Cirrhosis of liver 007 K74.60 Patient is on a low-dose of spironolac tone and this does need to be increased giving her ascites finding on ultrasound . Will increase it to 50 mg twice daily. Ending on response we may need to increase this further. The patient does have a GI doctor and recommend follow-up with them as well. [id number] Bita Resendiz MD [facility] ([facility]) [address] [place] [phone] 09/05/2024 17:19:04 09/06/2024 07:54:42 Lichen sclerosus 826399092 L90.0 Will treat rash with clobetasol . Furuncle 447971460 L02.9 2 Recommend doing a course of antibiotic s. Body mass index 40+ - severely obese 101856925 E66.01 Discussed options and the patient would like to try Zepbound. The patient would be a good candidate given her obesity and the significan t risk for long-term health issues. Health Concerns Section Related Observation LastModified by Organization Detai ls LastModified Time None Recorded Concern Status LastModified by Organization Details LastModified Time None Recorded Advance Directives Directive None Recorded Payers Insurance Date Sequence Insurance Name Policy Number Policy Brooke Covered Member ID Brooke Member ID Guarantor Name 09/02/2024 1 [facility] (MEDICAID HMO) Shelby Saurav [id number] Shelby Saurav 09/11/2024 [facility] (MEDICAID HMO) Shelby Saurav [id number] Shelby Saurav Notes Date Note Type Note Provider Name and Address Organization Details Recorded Time 11/12/2022 text/html This is a 57-yea r-old female who presents today for evaluation of CPAP use as well as to discuss some chronic joint pain. Patient states that she uses her CPAP every night for at least 8 to 10 hours. Patient has noted improvement in her symptoms and feels more rested in the morning. Patient also reports that she is concerned about rheumatoid as she has joint pain and stiffness. This is worse in the morning. Bita Resendiz MD [address] [place] [address], [phone], [facility] 11/13/2022 09:23:11 05/17/2023 text/html This is a 57-yea r-old female presents for medication refill. Patient has no acute concerns today. Patient states that she needs a refill on her pantoprazole this has been working well for her to control her reflux symptoms. The patient denies any significant side effects. Other chronic medical issues are doing well. Bita Resendiz MD [address] [place] [address], [phone], [facility] 05/18/2023 17:02:30 01/18/2024 text/html 58-year-old roshan leon comes in today to discuss acute concerns. The patient recently had an ultrasound done at [facility]. It showed mild ascites noted around her liver. The patient has known cirrhosis secondary to fatty liver disease. Patient takes spironolactone and was curious about increasing the dose. Patient has also noticed that she has had increasing difficulties urinating and is concerned about infection. Bita Resendiz MD [address] [place] [address], [phone], [facility] 01/19/2024 08:34:35 09/05/2024 text/html Annual WellnessReported bypatient.Diet and Nutrition:healthy diet;high carbohydrate meals; discussed portion control; discussed diet improvement Fracture Risk:no history of fractures Physical Activity:does not exercise on a regular basis;decreased physical activity;poor physical condition;deconditione d due to sedentary lifestyle Additional Lifestyle Factors:no tobacco use; no alcohol intake Depression Risk:feels sad, empty, or tearful;loss of interest in activities;significant changes in weight;sleep disturbances or insomnia;loss of energy Hearing:no loss of hearing Vision:no vision problems Pt here today for annual wellness. She has lumps on her vagina, says there are cyst and pops them. She denies any concerns for STDs. Patient also would like something to help with weight loss. Bita Resendiz MD [address] [place] [address], [phone], [facility] 09/08/2024 13:15:35 OBGyn Episode No OBEpisode recorded.
--- OUTSIDE RECORDS SUMMARY | 2024-09-12 12:37 | XMS_ITS | Patient Health Record ---
Author Organization [facility] Address [address] [place] [address] Care Team Providers Care Rat Poisoner Name Role Phone Deacon Resendiz MD Primary Care Provider Unavaila Agapito Ferrer Unavailable [phone] Augustina Vazquez Unavailable [phone] Trena Durham Unavailable [phone] Allergies Allergen (clinical drug ingredient) Drug/Non Drug Allergy documented on EMR Reaction Allergy Type Onset Date Status codeine Codeine Sulfate Unknown Drug Allergy A ctive Keflex Unknown Drug Allergy Active Wheat Germ Oil Unknown Drug Allergy Ac tive acetaminophen Acetaminophen Unknown Drug Allergy Active ibuprofen Ibuprofen Unknown Drug Allergy Active Reason For Referral No Information Medications Medication SIG (Take, Route, Frequency, Duration) Notes Start Date End Date Status ZyrTEC Allergy 10 MG 1 tablet Orally Once a day Active Vitamin D 50,000mg 1 tablet weekly Active predniSONE 5 MG 1 tablet Orally Once a day Active Centrum Adults - 1 tablet Orally daily Active Hydroxychloroquine Sulfate 200 MG as directed Orally Twice a day Not-Taking Pantoprazole Sodium 40 MG 1 tablet Orall y Once a day Active Spironolactone 50 MG 1 tablet Orally Once a day Active Nadolol 20 MG Take 1 tablet by mouth once daily for 30 Active Social History Tobacco Use: Social History Observation Description Date Details (start date - stop date) Never Smoker NA - NA Alcohol Screen (Audit-C) Question Answer Notes Did you have a drink containing alcohol in the p ast year? No Points 0 Interpretation Negative Tobacco Control (Standard) Question Answer Notes Tobacco use: Nonsmoker Section Notes: Nonsmoker Nondrinker No Hx substance abuse Nonsmoker Nondrinker No Hx substance abuse Nonsmoker Nondrinker No Hx substance abuse Problems Problem Type SNOMED Code ICD Code Onset Dates Problem Status W/U Status Risk Notes Problem Oesophageal varices without bleeding (19591342) Secondary esophageal varices without bleeding (I85.10) Active confirmed Problem 59128534 Secondary esophageal varices with bleeding (I85.11) Active confirmed Problem 098563564 Other diseases of stomach and duodenum (K31.89) Active confirmed Problem Cirrhosis of liver () Unspecified cirrhosis of liver (K74.60) Active confirmed Problem 90775909 Other cirrhosis of liver (K74.69) Active confirmed Problem 104389480 Portal hypertension (K76.6) Active confirmed Problem 53254513 Essential hypertension (I10) Active confirmed Problem 503011667 Screening for colon cancer (Z12.11) Active confirmed Problem 20231993 Obstructive sleep apnea (G47.33) Active confirmed Problem 26025823743480 History of hepatitis C (Z86.19) Active confirmed Problem 343317644 Morbid obesity (E66.01) Active confirmed Problem 62794056 Esophageal varices without bleeding, unspecified esophageal varices type (I85.00) Active confirmed Problem Cirrhosis - non-alcoholic (839708236) Advanced cirrhosis of liver (K74.60) Active confirmed Problem 84577361 Bleeding esophageal varices, unspecified esophageal varices type (I85.01) Active confirmed Problem 437258179 Rheumatoid arthritis involving multiple sites, unspecified whether rheumatoid factor present (M06.9) Active confirmed Problem 171295263825582647 History of COVID-19 (Z86.16) Active confirmed Problem Esophageal varices with bleeding, associated with another disorder (708109432) Esophageal varices with bleeding in diseases classified elsewhere (I85.11) Active confirmed Vital Signs Heart Rate 73 /min 04/10/2024 Temperature 97.3 degrees Fahrenheit 04/10/2024 Respiratory Rate 18 /min 04/10/2024 Blood pressure diastolic 90 mm Hg 04/10/2024 Oximetry 96 % 04/10/2024 Height-cm 167.64 cm 04/10/2024 Weight-kg 139.44 kg 04/10/2024 Height 66 in 04/10/2024 Blood pressure systolic 124 mm Hg 04/10/2024 Weight 307.4 lbs 04/10/2024 BMI 49.61 kg/m2 04/10/2024 Encounters Encounter Location Date Provider Diagnosis [facility] [address] [place] [address] 05/03/2024 [facility] [address] [place] [address] 04/10/2024 Trena Durham Portal hypertension K76.6 ; Advanced cirrhosis of liver K74.60 ; Colon cancer screening Z12.11 ; Family history of colon cancer Z80.0 ; Other dysphagia R13.19 and Secondary esophageal varices without bleeding I85.10 [facility] [address] [place] [address] 12/23/2023 [facility] [address] [place] [address] 01/10/2024 [facility] [address] [place] [address] 01/17/2024 [facility] [address] [place] [address] 04/11/2024 [facility] [address] [place] [address] 05/14/2024 [facility] Assessments Encounter Date Diagnosis (ICD Code) Assessment Notes Treatment Notes Treatment Clinical Notes Section Notes 04/10/2024 Portal hypertension (ICD-10 - K76.6) Due to a history of liver disease believed to be secondary to past history of hepatitis C and fatty liver disease.Patient compliant with Nadolol 20 mg p.o. daily. 04/10/2024 Advanced cirrhosis of liver (ICD-10 - K74.60) Abdominal ultrasound from December 2023 reviewed. Abdominal ultrasound significantly limited evaluation of the abdominal structures due to the patient's body habitus. There is marked hepatosplenomegaly, severe fatty infiltration of the liver similar to a prior CT in 2021. A small amount of ascites is seen adjacent to the liver. Liver with cirrhotic configuration. No mass noted. Recommend routine HCC screening in 6 mo intervals. 04/10/2024 Colon cancer screening (ICD-10 - Z12.11) Last colonoscopy in 2022 significant for a 3 mm benign polyp in the ascending colon and a 3 mm polyp in the rectum which was ablated and nonbleeding rectal varices. Recommended 5-year follow-up colonoscopy. 04/10/2024 Family history of colon cancer (ICD-10 - Z80.0) Father age 52, brother age 50. 04/10/2024 Secondary esophageal varices without bleeding (ICD-10 - I85.10) Due to liver disease believed to be secondary to past history of hepatitis C and fatty liver disease. Positive GABBI titer. Complicated by variceal hemorrhage.Patient reports being compliant with nadolol 20 mg p.o. daily. Last EGD in 2022 reviewed, significant for grade 1 esophageal varices without bleeding. Recommended 1 year EGD follow-up for variceal screening. Patient does report some dysphagia with solid foods and epigastric pain. 04/10/2024 Other dysphagia (ICD-10 - R13.19) Eval and treat with EGD for dysphagia. 04/10/2024 Other Mirna Lund, am scribing for, and in the presence of Trena Durham APRN. Trena Lund, personally performed the services described in this dictation as scribed by Mirna Taylor, in my presence, and it is both accurate and complete. Plan Of Treatment Pending Test Test Name Order Date ABORh 39883, 01737 03/19/2022 Antibody Screen 63481 03/19/2022 CBC w\o Diff 84017 03/22/2022 ZZZSmooth Muscle AB IgA (B) 88418 2022 PRBC-LR--P9016 03/19/2022 BB ABORH-[id number],69496 03/19/2022 EGD, Upper GI Diagnostic-89291 Future Test Test Name Order Date Prothrombin Time 24635 06/12/2024 Basic Metabolic Panel (BMP) 20254 2024 CBC w\ Auto Diff 97094 06/12/2024 Hepatic Function Panel 36314 06/12/2024 Insurance Providers Payer Name Payer Address Payer Phone Subscriber Number Group Number Insured Name Patient Relationship to Insured Coverage Start Date Coverage End Date [facility] Medicaid Replacement [address] [place] [address] [id number] Saurav Shelby Self - patient is the insured [place] Medicaid [address] [place] [address] [id number] Shelby Mg Self - patient is the insured Medical (General) History Medical History History ICD Code mumps Chicken Pox anemia chronic bladder infections blood transfusion hypertension hypotension hemorrhoids cirrhosis fatty liver GERD hepatitis C kidney stones Rashes, Skin Problems ulcerative colitis bradycardia celiac sprue Surgical History Surgery Date(Month/Year) cholecystectomy 1989 total hysterectomy, abdominal 2009 EGD 05/2022 section Hospitalization History Reason Date(Month/Year) Surgical History
--- OUTSIDE RECORDS SUMMARY | 2024-09-12 12:37 | XMS_ITS | Continuity of Care Document ---
Author Organization [place] [facility] [place], [facility] ([facility]) Address [address] [place] [address] Care Team Providers Care Implant Coordinator Name Role Phone BITA RESENDIZ Primary Care Provider Assessment No assessment recorded. Plan of Treatment Reminders Order Date Submit Date Provider Last Modified By Organization Details Last Modified Time Details Appointments OFFICE VISIT 15 2024 03:00P M Bita Resendiz MD Not available Not available Not available Lab None recorded. Referral None recorded. Procedures None recorded. Surgeries None recorded. Imaging None recorded. Medication Orders Zepbound 2.5 mg/0.5 mL subcutane ous pen injector 2024 025 [facility], [address], [place], [address], 09/05/2024 18:05:10 Bactrim DS 800 mg-160 mg tablet 2024 025 [facility], [address], [place], [address], 09/05/2024 18:01:08 clobetaso l 0.05 % topical ointment 2024 025 [facility], [address], [place], [address], 09/05/2024 18:01:09 Patient TargetsNo targets recorded. Patient InstructionsNo instructions recorded. Reason for Referral None Reported. Problems Name Problem SNOMED Code Status Onset Date Resolution Date Notes Provider Name and Address Organization Details Recorded Time Hypoxia 870740000 Active 2022 HYPOXIA; 03/26/2022 11:38AM by Cortney Krishnan, Office Visit; Promoted; acuity set as *; CORTNEY ramirez [facility] 3 17:25:09 Esophageal varices without bleeding 75739405 Active 2022 ESOPHAGEAL VARICES; Impression : Patient was instructed to present to the ED with concerns for bleeding.; Recorded 03/26/2022 1:34PM by Bita Resendiz MD, Office Visit; Promoted; acuity set as *; CORTNEY ramirez [facility] 3 17:24:45 Viral hepatitis C 99600612 Active 2022 HEPATITIS C; 03/26/2022 11:37AM by Cortney Krishnan, Office Visit; Promoted; acuity set as *; HEPATITIS C; Impression : check labs. Patient may meet criteria for newer treatments if still infected.; Recorded 02/02/2022 4:49PM by Bita Resendiz MD, Office Visit; Promoted; acuity set as *; ; Start Date : 02/02/2022 CORTNEY ramirez [facility] 3 17:25:14 Obstructiv e sleep apnea syndrome 05980956 Active 2022 OBSTRUCTIV E SLEEP APNEA; Impression : We will attempt to get sleep study results and order new CPAP and supplies.; Recorded 03/29/2022 10:24AM by Cortney Krishnan, Historical Summary; Promoted; acuity set as *; CORTNEY ramirez [facility] 3 17:25:01 Ulcerative colitis 29801266 Active 2022 ULCERATIVE COLITIS; 03/26/2022 11:38AM by Cortney Krishnan, Office Visit; Promoted; acuity set as *; CORTNEY ramirez [facility] 3 17:25:05 Gastroesop hageal reflux disease 407729065 Active 2022 GERD (GASTROESO PHAGEAL REFLUX DISEASE); Recorded 05/13/2022 10:23AM by Cortney Krishnan, Historical Summary; Promoted; acuity set as *; CORTNEYSA RAMO ramirez [facility] 3 17:24:52 Hypertensi ve disorder 37427273 Active 2021 HYPERTENSI ON; Impression : blood pressure is elevated today and the patient was encouraged to monitor at home and keep a log to bring to next visit in 2 weeks.; Recorded 02/02/2022 4:47PM by Bita Resendiz MD, Office Visit; Promoted; acuity set as *; CORTNEY ramirez [facility] 3 17:24:57 Polyarthro roldan 03223734 Active 2022 Bita Resendiz MD [address] [place] [address], [phone], [facility] 3 16:19:14 Celiac disease 505140916 Active 2023 CORTNEY ramirez [facility] 4 10:03:59 Dysuria 69350007 Active 2023 Bita Resendiz MD [address] [place] [address], [phone], [facility] 4 12:36:44 Ascites 764865828 Active 2023 Bita Resendiz MD [address] [place] [address], [phone], [facility] 4 08:31:01 Steatotic liver disease 903900368 Active 2023 Bita Resendiz MD [address] [place] [address], [phone], [facility] 4 08:31:30 Cirrhosis of liver 31147389 Active 2023 Bita Resendiz MD [address] [place] [address], [address] [place] [address] 5, [facility] 4 08:31:40 Louse infestatio n 449152276 Active 2024 Biat Resendiz MD [address] [place] [address], [address] [place] [address] 5, [facility] 5 17:59:54 Lichen sclerosus 593955986 Active 2024 Bita Resendiz MD [address] [place] [address] 5, [facility] 5 18:00:03 Furuncle 816921503 Active 2024 Bita Resendiz MD [address] [place] [address] 5, [facility] 5 18:00:25 Body mass index 40+ - severely obese 822433695 Active 2024 Bita Resendiz MD [address] [place] [address] 5, [facility] 5 18:04:31 Problem Notes None recorded. Medical Equipment None Reported. Allergies Allergen ID Allergen Name Allergen Category Reaction Reaction Severity Criticality Documentation Date Start Date Code Code System Note Provider Name and Address Organization Details Recorded Time 93706 codeine sulfate medicatio n chest pain Not available Not available 10/16/2022 31639 RxNorm React ion: Chest pain, Hives , Rash; Comme nt: Recor ded 02/02 2:20P M by Moisés Canas sa Visit ; Reyes magallanes; Shaun ramirez ce: *; Reaso n: Drug aller gy; ; Not Available [facility] 3 02:24:01 72491 ibuprofen medicatio n Not available Not available Not available 10/16/2022 5640 RxNorm Comme nt: Recor ded 03/26 11:38 AM by Marcelo Krishnan , Offic e Visit ; Reyes magallanes; Shaun ramirez ce: *; Reaso n: Drug aller gy; ; Not Available [facility] 3 02:24:03 49627 Keflex medicatio n swelling Not available low 11/12/2022 91180 7 RxNorm CORTNEY ramirez [facility] 3 16:02:26 96623 wheat gluten extract food Not available Not available Not available 01/18/2024 59615 81 [facility] 4 12:17:37 Medications Name Sig Start Date [...] 0; Recorded 03/26/19 23 11:41AM by Cortney Krishnan, Office Visit; Not Available Not Available Not [...] completed 0; Recorded 03/26/19 11:42AM by Cortney Krishnan, Office Visit; Not Available Not Available Not Available [employer] mins daily active 0; Recorded 03/26/19 11:43AM by Cortney Krishnan, Office Visit; Not Available Not Available Not [...] t Available Vitals Date Recorded Body height Body mass index (BMI) Body weight Body temperature Oxygen saturation Oxygen saturation in Arterial blood by Pulse oximetry Heart rate Systolic blood pressure Diastolic blood pressure Provider Name and Address Organization Details Last Updated DateTime 5 170.18 cm 48.1 kg/m2 348617. 86 g 97.3 [degF] 99 % 99 % 62 /min 122 mm[Hg] 100 mm[Hg] Thania James [facility] 5 17:24:46 Social History Question Answer Notes LastModified by Organizat ion Details LastModified Time Tobacco Smoking Status Never Smoker EMIL ramirez [facility], [facility] 01/18/2024 12:20:22 What Is Your Level Of Caffeine Consumption? Moderate Information not available 01/18/2024 What Type Of Diet Are You Following? GLUTENFREE Information not available 01/18/2024 What Was The Date Of Your Most Recent Tobacco Screening? 09/05/2024 [email or web address] Information not available 09/05/2024 What Is Your Relationship Status? Single Information not available 01/18/2024 Sex: Unknown Functional Status Question Answer Note LastModified by Organizat ion Details LastModified Time Do you use any [...] SNOMED-CT Code Diagnosis ICD10 Code Diagnosis Note [id number] Bita Resendiz MD [facility] ([facility]) [address] [place] [address] 09/05/2024 17:19:04 09/06/2024 07:54:42 Lichen sclerosus 426630640 L90.0 Will treat rash with clobetasol . Furuncle 760159919 L02.9 2 Recommend doing a course of antibiotic s. Body mass index 40+ - severely obese 619810185 E66.01 Discussed options and the patient would like to try Zepbound. The patient would be a good candidate given her obesity and the significan t risk for long-term health issues. Health Concerns Section Related Observation LastModified by Organization Detai ls LastModified Time None Recorded Concern Status LastModified by Organization Details LastModified Time None Recorded Payers Encounter Date Sequence Insurance Name Policy Number Policy Brooke Covered Member ID Brooke Member ID Guarantor Name 09/05/2024 1 [facility] (MEDICAID HMO) Shelby Mg [id number] Shelby Saurav Notes Date Note Type Note Provider Name and Address Organization Details Recorded Time 09/05/2024 text/html Annual WellnessReported bypatient.Diet and Nutrition:healthy [...] help with weight loss. Bita Resendiz MD [address] [place] [address], [phone], [facility], LE[facility] 09/08/2024 13:15:35 OBGyn Episode No OBEpisode recorded.
[2024-09-12 12:46] LABS: Alanine Aminotransferase 48 U/L (0-33); Albumin Level 4.4 g/dL (3.5-5.2); Alkaline Phosphatase 50 U/L (35-105); Blood Urea Nitrogen 43 mg/dL (6-20); Calcium 10.5 mg/dL (8.5-10.5); Carbon Dioxide 16 mmol/L (22-29); Chloride 102 mmol/L (98-107); Creatinine Clr Calc Pharmacy 68.5288; Globulin 3.7 g/dL (1.3-4.6); Glomerular Filtration Rate 42.2 mL/min (90-130); Glucose 105 mg/dL (65-115); Lipase 54 U/L (13-60); Osmolality Calculated 285 mOsm/kg (285-295); Sodium 132 mmol/L (136-145); Total Bilirubin 1.1 mg/dL (0.15-1.2); Total Protein 8.1 g/dL (6.6-8.7)
[2024-09-12 12:48] LABS: Anion Gap 20.9 (5-19); Aspartate Amino Transferase 37 U/L (0-32); Potassium 6.9 mmol/L (3.5-5.1)
[2024-09-12 12:56] LABS: Thyroid Stimulating Hormone 4.92 uIU/mL (0.27-4.20)
--- NOTE | 2024-09-12 13:16 | CT_ITS ---
WS: [id number] CT ABDOMEN AND PELVIS NONCONTRAST HISTORY: Renal failure, r/o obstructive uropathy TECHNIQUE: Imaging performed through the abdomen and pelvis. Coronal and sagittal reformats are submitted. All CT scans at [facility] use at least one of these dose optimization techniques: automated exposure control; mA and/or kV adjustment per patient size (includes targeted exams where dose is matched to clinical indication); or iterative reconstruction. DLP: 1303.03 mGy.cm COMPARISON: 03/19/2022 Lower thorax: Lung bases are clear. Visualized heart is normal. No hiatal hernia. Liver: Normal size liver with surface irregularity consistent with cirrhosis. Recanalized umbilical vein. Gallbladder: Prior cholecystectomy. Pancreas: Normal size and attenuation. Normal pancreatic duct. No pancreatitis or mass. Spleen: Splenomegaly. Spleen is enlarged measuring 20 cm in length. Similar to the prior spleen size on 03/19/2022. Adrenal glands: Normal RIGHT adrenal gland. Stable LEFT adrenal adenoma, 2.2 cm. Right kidney: No obstruction. Normal size kidney. No renal or ureteral calcification. Left kidney: Normal size kidney with no mass or hydronephrosis. Aorta: Mild atherosclerosis abdominal aorta with no aneurysm. Small central mesenteric lymph nodes can be noted with cirrhosis. GI tract: No GI tract obstruction. No colitis. Normal appendix. No significant diverticular disease. Abdominal wall: Small umbilical hernia contains fat only. Pelvis: Well-distended urinary bladder. Prior hysterectomy. LEFT ovary remains. No free fluid. Osseous structures: Unremarkable. CT/CT abdomen pelvis wo con [id number] IMPRESSION: 1. No acute abdominal or pelvic abnormalities. 2. No renal obstruction or calcification. 3. Hepatosplenomegaly with portal hypertension. 4. Recanalized umbilical vein. 5. Cirrhotic liver. 6. Stable LEFT adrenal adenoma. 7. Prior hysterectomy.
[2024-09-12 13:21] LABS: Anion Gap 19.7 (5-19); Blood Urea Nitrogen 45 mg/dL (6-20); Calcium 10.5 mg/dL (8.5-10.5); Carbon Dioxide 18 mmol/L (22-29); Chloride 105 mmol/L (98-107); Creatinine Clr Calc Pharmacy 68.5288; Glomerular Filtration Rate 42.2 mL/min (90-130); Glucose 102 mg/dL (65-115); Osmolality Calculated 294 mOsm/kg (285-295); Sodium 136 mmol/L (136-145)
[2024-09-12 13:24] LABS: Potassium 6.7 mmol/L (3.5-5.1)
--- NOTE | 2024-09-12 13:29 | W.ED.WEAKNES ---
HPI - Weakness General: Chief complaint: Weakness Stated complaint: weakness Time Seen by Provider: 09/12/24 13:03 History of Present Illness: 58-year-old female with a history of nonalcoholic cirrhosis with a history of portal hypertension and esophageal varices who follows with Dr. Rojas in [place], GERD, obesity, hypertension and obstructive sleep apnea who presents to the emergency room with worsening weakness. She was placed on Bactrim recently for a urinary tract infection. After which she started become more weak. She developed some pruritus. She has recently been on a heart monitor. She is chronically bradycardic. A little more so today at 45. No fevers. No altered mental status. No chest pain. No abdominal pain. She has been having muscle cramps and generalized weakness. She fell yesterday and hit her head and has a bruise on the left side of her forehead. No loss of consciousness. No altered mental status. No focal motor deficits. Review of Systems Narrative: Constitutional symptoms: Negative except as documented in HPI. Skin symptoms: Negative except as documented in HPI. Eye symptoms: Negative except as documented in HPI. ENMT symptoms: Negative except as documented in HPI. Respiratory symptoms: Negative except as documented in HPI. Cardiovascular symptoms: Negative except as documented in HPI. Gastrointestinal symptoms: Negative except as documented in HPI. Genitourinary symptoms: Negative except as documented in HPI. Musculoskeletal symptoms: Negative except as documented in HPI. Neurologic symptoms: Negative except as documented in HPI. Psychiatric symptoms: Negative except as documented in HPI. Endocrine symptoms: Negative except as documented in HPI. [facility] ED PFSH: Medical History (Updated 09/12/24 @ 16:19 by Newton Garcia MD) Morbid obesity High risk medication use Inflammatory arthritis Esophageal varices s/p banding Portal hypertension Cirrhosis of liver History of iron deficiency anemia Celiac disease Hepatitis C Treated in 2012 GERD (gastroesophageal reflux disease) Obstructive sleep apnea Hypertension Surgical History History of esophagogastroduodenoscopy (EGD) With banding of esophageal varices History of cholecystectomy History of section History of hysterectomy with unilateral oophorectomy (2009) Family History Father Cancer Liver and bone cancer Mother Cancer Breast and uterine cancer Brother Cancer Lung cancer Other Anesthesia complication Bleeding disorder CAD (coronary artery disease) Chronic kidney disease (CKD) Clotting disorder Diabetes Hypertension Psychiatric illness Social History Smoking and tobacco/nicotine status: never used tobacco/nicotine Alcohol intake: never Substance/Drug Use: never Physical Exam Narrative: EXAM NARRATIVE: General: Alert, no acute distress. Skin: Warm, dry. Head: Normocephalic, atraumatic. Neck: Supple, trachea midline. Eye: Extraocular movements are intact. Ears, nose, mouth and throat: mucosa moist. Cardiovascular: Regular, bradycardic, Normal peripheral perfusion. Respiratory: Lungs are clear to auscultation, respirations are non-labored, breath sounds are equal, Symmetrical chest wall expansion. Gastrointestinal: Soft, Nontender, Non distended Musculoskeletal: Normal ROM, no deformity. Neurological: Alert and oriented, No focal neurological deficit observed. Psychiatric: Cooperative, appropriate mood & affect. Course Vital Signs: Vital signs: Vital Signs Temperature 98.0 F 09/12/24 12:18 Pulse Rate 45 L 09/12/24 15:32 Respiratory Rate 16 09/12/24 15:32 Blood Pressure 129/75 09/12/24 15:32 Pulse Oximetry 93 09/12/24 15:32 Oxygen Delivery Me thod Room Air 09/12/24 12:18 MDM - Weakness Medical Decision Making Medical decision making: Differential diagnosis for patient presenting with generalized weakness including but not limited to and based on the above HPI, review of systems and physical exam: Sepsis. Dehydration. Renal failure. Electrolyte abnormalities. Anemia. Congestive heart failure. Hypotension. Coronary syndrome. Hepatitis. Cirrhosis. Infections such as pneumonia, urinary tract infection, [place] illness, Cellulitis, Viral infections including influenza and Covid-19. Workup: labwork and lab/exam driven imaging ordered to evaluate, rule in and rule out above pathologies. EKG: Time 1234. Rate 45. Sinus bradycardia, No ST-T changes, no ectopy, normal MO & QRS intervals, This was reviewed and interpreted by the ER physician at 1240. Lab Review: Laboratory results were reviewed and interpreted by myself the emergency room physician. No leukocytosis. No anemia. Acute renal insufficiency with a BUN/creatinine of 45 and 1.3. Also potassium that was elevated at 6.7. Repeat confirms this. Urinalysis negative for infection at this time. CT of the abdomen pelvis: Ordered to rule out obstructive uropathy. No acute process. Chronic hepatosplenomegaly with portal hypertension and cirrhotic liver. Other incidental findings. This was reviewed and interpreted by myself the emergency room physician. I also reviewed the radiology report. I reviewed the patient's medical record. Reexamination: Patient remained stable. No increased work of breathing. No altered mental status. No focal motor deficits. Consultation: I spoke with Dr. Garcia who is admitting the patient. Assessment and plan: Acute renal failure Dehydration Bactrim toxicity ?2 L normal saline bolus ? Insulin, D10, calcium gluconate, Kayexalate. -I discussed the patient with the hospitalist on-call who is admitting the patient. - Discussed findings and plan with patient. Answered any questions. - All laboratory values were reviewed and interpreted personally by myself, the ER physician - All imaging was reviewed and interpreted personally by myself, the ER physician. - Evaluation and treatment of this problem were appropriate in the emergency setting Lab Data 09/12/24 12:15 09/12/24 12:56 Radiology Impressions Chest X-Ray 09/12/24 12:12 IMPRESSION: 1. Negative chest. Abdomen/Pelvis CT 09/12/24 13:16 IMPRESSION: 1. No acute abdominal or pelvic abnormalities. 2. No renal obstruction or calcification. 3. Hepatosplenomegaly with portal hypertension. 4. Recanalized umbilical vein. 5. Cirrhotic liver. 6. Stable LEFT adrenal adenoma. 7. Prior hysterectomy. Head CT 09/12/24 13:51 IMPRESSION: 1. No acute intracranial hemorrhage or edema. 2. Mild cerebral and cerebellar atrophy and small vessel disease. Laboratory Results WBC 5.98 10^3/uL (3.29-11.43) 09/12/24 12:15 RBC 4.84 10^6/uL (3.85-5.65) 09/12/24 12:15 Hgb 13.70 g/dL (11.27-16.99) 09/12/24 12:15 Hct 42.6 % (36-47) 09/12/24 12:15 MCV 88.0 fl (85-98) 09/12/24 12:15 MCH 28.3 pg (27-33) 09/12/24 12:15 MCHC 32.2 g/dL (30-55) 09/12/24 12:15 RDW 13.8 % (12.1-15.1) 09/12/24 12:15 Plt Count 139 10^3/cmm (157-399) L 09/12/24 12:15 MPV 10.4 fL (7.4-10.4) 09/12/24 12:15 Neut % (Auto) 60.6 % 09/12/24 12:15 Lymph % (Auto) 21.4 % 09/12/24 12:15 [place] % (Auto) 9.0 % 09/12/24 12:15 Eos % (Auto) 7.5 % 09/12/24 12:15 Baso % (Auto) 1.2 % 09/12/24 12:15 Neut # (Auto) 3.62 10^3/uL (1.8-7.7) 09/12/24 12:15 Lymph # (Auto) 1.3 10^3/uL (0.8-4.8) 09/12/24 12:15 [place] # (Auto) 0.5 10^3/uL (0.2-0.9) 09/12/24 12:15 Eos # (Auto) 0.5 10^3/uL (0.0-0.8) 09/12/24 12:15 Baso # (Auto) 0.1 10^3/uL (0.0-0.1) 09/12/24 12:15 Nucleated RBC % (auto) 0 % 09/12/24 12:15 Nucleated RBCs # 0.0 /100WBC 09/12/24 12:15 PT 15.00 SECONDS (12.1-14.9) H 09/12/24 12:15 INR 1.10 (0.8-1.2) 09/12/24 12:15 Sodium 136 mmol/L (136-145) 09/12/24 12:56 Potassium 6.7 mmol/L (3.5-5.1) H* 09/12/24 12:56 Chloride 105 mmol/L (98-107) 09/12/24 12:56 Carbon Dioxide 18 mmol/L (22-29) L 09/12/24 12:56 Anion Gap 19.7 (5-19) H 09/12/24 12:56 BUN 45 mg/dL (6-20) H 09/12/24 12:56 Creatinine 1.3 mg/dL (0.5-0.9) H 09/12/24 12:56 GFR Calculation 42.2 mL/min (90-130) L 09/12/24 12:56 Glucose 102 mg/dL (65-115) 09/12/24 12:56 POC Glucose 145 mg/dL (70-110) H 09/12/24 16:14 Calculated Osmolality 294 mOsm/kg (285-295) 09/12/24 12:56 Calcium 10.5 mg/dL (8.5-10.5) 09/12/24 12:56 Total Bilirubin 1.1 mg/dL (0.15-1.2) 09/12/24 12:15 AST 37 U/L (0-32) H 09/12/24 12:15 ALT 48 U/L (0-33) H 09/12/24 12:15 Alkaline Phosphatase 50 U/L (35-105) 09/12/24 12:15 Total Protein 8.1 g/dL (6.6-8.7) 09/12/24 12:15 Albumin 4.4 g/dL (3.5-5.2) 09/12/24 12:15 Globulin 3.7 g/dL (1.3-4.6) 09/12/24 12:15 Lipase 54 U/L (13-60) 09/12/24 12:15 TSH 4.92 uIU/mL (0.27-4.20) H 09/12/24 12:15 Urine Color Yellow (Yellow) 09/12/24 14:39 Urine Appearance Clear (CLEAR) 09/12/24 14:39 Urine pH 6.0 (5-7) 09/12/24 14:39 Ur Specific [place] 1.011 (1.005-1.030) 09/12/24 14:39 Urine Protein Negative (Negative) 09/12/24 14:39 Urine Glucose (UA) Negative (Normal) 09/12/24 14:39 Urine Ketones Negative (Negative) 09/12/24 14:39 Urine Blood Negative (Negative) 09/12/24 14:39 Urine Nitrate Negative (Negative) 09/12/24 14:39 Urine Bilirubin Negative (Negative) 09/12/24 14:39 Urine Urobilinogen 1.0 mg/dL (Negative) 09/12/24 14:39 Ur Leukocyte Esterase Negative (Negative) 09/12/24 14:39 Urine RBC 0-2 /hpf (0-2) 09/12/24 14:39 Urine WBC 0-5 /hpf (0-5) 09/12/24 14:39 Ur Squamous Epith Cells 0-5 /hpf (0-5) 09/12/24 14:39 Amorphous Sediment Not Reportable 09/12/24 14:39 Urine Bacteria Trace /hpf (NONE) 09/12/24 14:39 Hyaline Casts 0-4 /lpf H 09/12/24 14:39 All radiology interpretation(s) finalized by discharge Discharge Plan Discharge Patient Disposition: Admitted As Inpatient Clinical Impression: Acute hyperkalemia, Acute renal failure Condition: Stable Coding Level of Care Code ED Examiner Rating Clerk for Chg Fwd Related Data Home Medications ?Medication ?Instructions ?Recorded ?Confirmed pantoprazole 40 mg tablet,delayed 40 mg PO BID 04/05/22 09/12/24 release nadolol 20 mg tablet 20 mg PO DAILY 05/17/22 09/12/24 clobetasol 0.05 % topical ointment 1 applic topical BID PRN Skin 09/12/24 09/12/24 Irritation spironolactone 50 mg tablet 50 mg PO BID 09/12/24 09/12/24 sulfamethoxazole 800 1 tab PO Q12H 09/12/24 09/12/24 mg-trimethoprim 160 mg tablet Allergies Allergy/AdvReac Type Severity Reaction Status Date / Time gluten Allergy ADR-Gastrointestinal Verified 09/12/24 12:31 Upset ibuprofen Allergy ADR-Gastrointestinal Verified 09/12/24 12:31 Upset cephalexin (From Keflex) AdvReac rash Verified 09/12/24 12:31 codeine AdvReac rash Verified 09/12/24 12:31
[2024-09-12] MEDS: calcium gluconate 0.1 gm/mL 10% SDV 10mL 1 GM IVP (13:38)
[2024-09-12] MEDS: sodium chloride 0.9% 1,000 ML 999 ML IV (13:43)
[2024-09-12] MEDS: dextrose 10% 250 ML 1000 ML IV ×3 (13:43→17:02)
--- NOTE | 2024-09-12 13:46 | PC.NURSE ---
glucose 102 on finger stick, held insulin and started dextrose bolus; Dr. Garces notified
[2024-09-12 13:47] LABS: Glucose Point of Care 102 mg/dL (70-110)
--- NOTE | 2024-09-12 13:51 | CT_ITS ---
WS: [id number] CT HEAD NONCONTRAST HISTORY: fall, head injury TECHNIQUE: Contiguous axial imaging performed through the brain. Bone and soft tissue windows. Sagittal and coronal reformats reviewed. All CT scans at [facility] use at least one of these dose optimization techniques: automated exposure control; mA and/or kV adjustment per patient size (includes targeted exams where dose is matched to clinical indication); or iterative reconstruction. DLP: 1147.38 mGy.cm COMPARISON: None available. No acute intracranial hemorrhage, midline shift or mass effect. Mild atrophy and small vessel disease. Ventricles: Normal size with no hydrocephalus. No inferior displacement the cerebellar tonsils. Paranasal sinuses: As visualized are clear. Mastoid air cells: Well pneumatized. Calvarium and scalp: Skull is intact with no soft tissue edema or swelling. CT/CT head wo con* [id number] IMPRESSION: 1. No acute intracranial hemorrhage or edema. 2. Mild cerebral and cerebellar atrophy and small vessel disease.
[2024-09-12] MEDS: insulin regular-human 100 units/1 mL 10 UNIT IVP ×2 (14:17→17:02)
[2024-09-12 14:19] LABS: Glucose Point of Care 179 mg/dL (70-110)
--- NOTE | 2024-09-12 14:25 | PC.PHAR ---
Pt hasn't had a med rec completed in awhile. Removed from chart are the following: Asathioprine 50mg bid, Zyrtec 10mg daily, Vit d3 5,000 daily, Hydroxychloroquine 200mg bid, Pilocarpine 5mg tid, and prednisone 10mg.
--- NOTE | 2024-09-12 14:30 | PC.NURSE ---
educated pt on need for urine sample. pt attempting to get sample at this time
[2024-09-12 14:46] LABS: Bilirubin Urine Negative (Negative); Blood Urine Negative (Negative); Glucose Urine UA Negative (Normal); Ketones Urine Negative (Negative); Leukocyte Esterase Urine Negative (Negative); Nitrate Urine Negative (Negative); Protein Urine Negative (Negative); Specific Gravity, Urine 1.011 (1.005-1.030); Urine Appearance Clear (CLEAR); Urine Color Yellow (Yellow)
[2024-09-12 14:49] LABS: Add Urine Microscopic? YES; Bacteria Urine Trace /hpf; Hyaline Casts Urine 0-4 /lpf; RBC Urine 0-2 /hpf (0-2); Squamous Epithelial Cell Urine 0-5 /hpf (0-5); WBC Urine 0-5 /hpf (0-5)
[2024-09-12 15:02] LABS: Glucose Point of Care 95 mg/dL (70-110)
[2024-09-12 15:25] LABS: Glucose Point of Care 88 mg/dL (70-110)
[2024-09-12] MEDS: sodium polystyrene sulfonate 15 gm/60 mL Btl PO (15:51)
--- NOTE | 2024-09-12 16:05 | PM.HP ---
Providers/Chief Complaint Primary Care Provider: Deacon Resendiz MD Chief Complaint: weakness History of Present Illness Shelby Mg is a 58 year old female with past medical history of hepatitis C, liver cirrhosis, esophageal varices who was very recently put on oral Bactrim by her PCP with concerns for UTI over a week ago. Patient has been having episodes of weakness, muscle cramps with occasional falls in the last 2 days and she presented to the ER. In the ER she was found to have acute kidney injury with creatinine of 1.3, hyperkalemia with potassium of 6 9 and bradycardia with heart rate dropping down to 40s. She was given 2 L of IV fluid bolus, 1 g of IV calcium gluconate, 10 units of insulin, 2 doses of D10. Currently on examination her heart rate is 45 bpm, awake and alert with family at bedside. Review of Systems General: Reports: 10 or more systems reviewed and unremarkable except in HPI and below Const: Denies: fever(s), chills, body aches, change in appetite, change in weight, malaise, night sweats, diaphoresis, change in sleep pattern, daytime sleepiness or snoring Eyes: Denies: change in vision, blurry vision, photophobia, eye discomfort or eye discharge ENMT: Denies: throat pain, enlarged tonsils, hoarseness, mouth pain, oral sores, dry mouth, tinnitus, nasal congestion or post nasal drip Card: Denies: chest pain, palpitations, irregular heart rhythm, edema, swelling of feet/ankles, lightheadedness, syncope, pre-syncope, dyspnea on exertion, orthopnea, leg pain with exertion or acrocyanosis Resp: Denies: dyspnea, productive cough, non-productive cough, wheezing, stridor, pain on inspiration, change in phlegm color, hemoptysis or chest congestion GI: Denies: abdominal pain, nausea, vomiting, hematemesis, coffee ground emesis, dysphagia, heartburn, diarrhea, constipation, bloating, GI cramping, change in bowel habits, pain on defecation, hematochezia or melena : Denies: flank pain, dysuria, urinary frequency, urinary urgency, urinary hesitancy, nocturia or hematuria Musc: Denies: neck pain, back pain, extremity pain, joint pain, joint swelling, joint redness, joint stiffness or limited range of motion Neuro: Denies: headache(s), numbness in extremities, weakness in extremities, sensory changes, lack of coordination, difficulty walking, frequent falls, dizziness, vertigo, confusion, Slurred speech present, difficulty communicating thoughts or seizure-like activity Psych: Denies: anxiety, depression, mood swings, panic attacks, hopelessness or irritability Endo: Denies: polyuria, polydipsia, tired all the time, cold intolerance, excessive sweating, flushing or heat intolerance [place]/Lymph: Denies: easy bruising or easy bleeding All/Imm: Denies: tongue swelling, facial swelling or acute wheezing Medications/Allergies Home Medications ?Medication ?Instructions ?Recorded ?Confirmed ?Last Taken ?Type pantoprazole 40 mg tablet,delayed 40 mg PO BID 04/05/22 09/12/24 09/11/24 History release nadolol 20 mg tablet 20 mg PO DAILY 05/17/22 09/12/24 09/11/24 History clobetasol 0.05 % topical ointment 1 applic topical BID PRN Skin 09/12/24 09/12/24 Unknown History Irritation spironolactone 50 mg tablet 50 mg PO BID 09/12/24 09/12/24 09/11/24 History sulfamethoxazole 800 1 tab PO Q12H 09/12/24 09/12/24 09/11/24 History mg-trimethoprim 160 mg tablet Allergies Allergy/AdvReac Type Severity Reaction Status Date / Time gluten Allergy ADR-Gastrointestinal Verified 09/12/24 12:31 Upset ibuprofen Allergy ADR-Gastrointestinal Verified 09/12/24 12:31 Upset cephalexin (From Keflex) AdvReac rash Verified 09/12/24 12:31 codeine AdvReac rash Verified 09/12/24 12:31 PFSH Acute PFSH: Medical History (Updated 09/12/24 @ 16:19 by Newton Garcia MD) Morbid obesity High risk medication use Inflammatory arthritis Esophageal varices s/p banding Portal hypertension Cirrhosis of liver History of iron deficiency anemia Celiac disease Hepatitis C Treated in 2012 GERD (gastroesophageal reflux disease) Obstructive sleep apnea Hypertension Surgical History History of esophagogastroduodenoscopy (EGD) With banding of esophageal varices History of cholecystectomy History of section History of hysterectomy with unilateral oophorectomy (2009) Family History Father Cancer Liver and bone cancer Mother Cancer Breast and uterine cancer Brother Cancer Lung cancer Other Anesthesia complication Bleeding disorder CAD (coronary artery disease) Chronic kidney disease (CKD) Clotting disorder Diabetes Hypertension Psychiatric illness Social History Smoking and tobacco/nicotine status: never used tobacco/nicotine Alcohol intake: never Substance/Drug Use: never Vitals/I&O/Wt Last Vital Signs Temp 98.0 F 09/12/24 12:18 Pulse 45 L 09/12/24 15:32 Resp 16 09/12/24 15:32 BP 129/75 09/12/24 15:32 Pulse Ox 93 09/12/24 15:32 O2 Del Method Room Air 09/12/24 12:18 09/12/24 09/12/24 09/12/24 06:59 14:59 22:59 Intake Total 250 / 250 Balance 250 / 250 Weight last 48 hrs Weight 138.346 kg Physical Exam Narrative: General: No acute distress, AO x3, morbidly obese HEENT: PERRLA, pupils bilaterally equal and reactive Chest: Normal vesicular breath sounds, no added sounds, equal good air entry bilaterally CVS: S1-S2 regular, no murmurs, bradycardia, no gallops, no rubs Abdomen: Soft, nontender, no organomegaly, bowel sounds present Neuro: No focal deficits, no facial deformity, AO x3, power 5/5 in all limbs Data 09/12/24 12:15 09/12/24 12:56 A&P Assessment and plan (1) Acute renal failure: Due to combination of spironolactone on recent and Bactrim. Baseline creatinine around 1. Currently 1.3. Medical decussation for nephrotoxic Resperate hold off on Bactrim and spironolactone for now. NS at 75 cc/h. Monitor BMP daily. (2) Acute hyperkalemia: Insetting of ELISA along with bradycardia. Potassium up to 6.9. Repeat 2 g of IV calcium, 1 more dose of dextrose continues of insulin, Kayexalate 30 g. Monitor potassium every 6 hour. Telemetry. (3) Bradycardia: .Insetting of hyperkalemia. Telemetry. Continue to monitor. (4) Cirrhosis of liver: (5) Portal hypertension: (6) Morbid obesity: (7) Obstructive sleep apnea: BiPAP nightly and as needed Plan History of UTI: Currently UA negative for concern for UTI. Patient not having dysuria. Hold off on antibiotics for now. Full code Renal nondialysis diet Protonix OPD prophylaxis Heparin for DVT prophylaxis PDMP PDMP Reviewed: Not Reviewed Attestations Medical Necessity Statement*: Admission for more than 2 midnights for management of acute hyperkalemia leading to bradycardia in setting of ELISA in a patient with history of liver cirrhosis Diagnoses Acute renal failure N17.9 Acute hyperkalemia E87.5 Bradycardia R00.1 Cirrhosis of liver K74.60 Portal hypertension K76.6 Morbid obesity E66.01 Obstructive sleep apnea G47.33
[2024-09-12 16:17] LABS: Glucose Point of Care 145 mg/dL (70-110)
[2024-09-12] MEDS: calcium gluconate 0.9% NaCL 1 GM/50 ML PREMIX IV ×2 (16:23→17:02)
[2024-09-12] MEDS: sodium chloride 0.9% 1,000 ML 75 ML IV (16:23)
[2024-09-12 16:48] LABS: Procalcitonin 0.09 ng/mL (0-0.5)
[2024-09-12 16:49] LABS: Potassium 6.2 mmol/L (3.5-5.1)
[2024-09-12] MEDS: sodium polystyrene sulfonate 15 gm/60 mL Btl 30 GM PO (17:03)
[2024-09-12 17:45] LABS: Glucose Point of Care 112 mg/dL (70-110)
[2024-09-12] MEDS: pantoprazole DR 40 mg Tablet PO (18:31)
[2024-09-12] MEDS: heparin 5,000 unit/mL INJ 1 mL 5000 UNIT SUBCUT (18:31)
[2024-09-12 18:59] LABS: Iron 186 ug/dL (37-145)
[2024-09-12 19:11] LABS: Percent Saturation 38.9 % (20-50); Total Iron Binding Capacity 477 mcg/dl; Unsaturated Iron Binding 291 ug/dL (112-347)
[2024-09-12 19:14] LABS: Potassium 5.8 mmol/L (3.5-5.1)
[2024-09-12 19:14] LABS: Vitamin B12 699 pg/mL (232-1245)
[2024-09-12 19:40] LABS: Urine Creatinine 38 mg/dL (28-217)
[2024-09-12 20:34] LABS: Estmated Average Glucose 174; Hemoglobin A1C 7.7 % (4.0-6.0)
[2024-09-13] VITALS (8 sets, daily range): BP systolic 106–131; BP diastolic 60–82; PULSE 48–62; RESP 15–23; TEMP 36.6–36.7; O2SAT 95–96
[2024-09-13] MEDS: morphine 4 mg/mL SDV 1 mL 2 MG IVP (02:00)
[2024-09-13 04:27] LABS: Basophils % 1.1 %; Eosinophils # 0.2 10^3/uL (0.0-0.8); Eosinophils % 5.6 %; Hematocrit 40.5 % (36-47); Lymphocytes # 0.9 10^3/uL (0.8-4.8); Lymphocytes % 24.7 %; Mean Corpuscular HGB Conc 31.6 g/dL (30-55); Mean Corpuscular Hemoglobin 28.3 pg (27-33); Mean Corpuscular Volume 89.4 fl (85-98); Mean Platelet Volume 10.4 fL (7.4-10.4); Monocytes # 0.3 10^3/uL (0.2-0.9); Monocytes % 8.5 %; Neutrophils # 2.27 10^3/uL (1.8-7.7); Neutrophils % 60.1 %; Nucleated Red Blood Cells % 0 %; Platelet Count 103 10^3/cmm (157-399); Red Blood Count 4.53 10^6/uL (3.85-5.65); White Blood Count 3.77 10^3/uL (3.29-11.43)
[2024-09-13 04:51] LABS: Cholesterol 168 mg/dL (0-200); HDL Cholesterol 35 mg/dL (60-100); LDL Cholesterol Calculated 108 mg/dL (50-129); LDL HDL Ratio 3.09 RATIO (0.00-3.22); Triglycerides 124 mg/dL (0-150)
[2024-09-13 04:55] LABS: Procalcitonin 0.09 ng/mL (0-0.5)
[2024-09-13 05:05] LABS: Folate Level 5.9 ng/mL (4.8-37.3)
[2024-09-13 05:11] LABS: Alanine Aminotransferase 46 U/L (0-33); Albumin Level 4.2 g/dL (3.5-5.2); Alkaline Phosphatase 50 U/L (35-105); Anion Gap 17.9 (5-19); Aspartate Amino Transferase 35 U/L (0-32); Blood Urea Nitrogen 39 mg/dL (6-20); Calcium 10.2 mg/dL (8.5-10.5); Carbon Dioxide 20 mmol/L (22-29); Chloride 106 mmol/L (98-107); Creatinine Clr Calc Pharmacy 68.5288; Globulin 3.2 g/dL (1.3-4.6); Glomerular Filtration Rate 42.2 mL/min (90-130); Glucose 142 mg/dL (65-115); Magnesium 1.9 mg/dL (1.7-2.3); Osmolality Calculated 298 mOsm/kg (285-295); Phosphorus 5.1 mg/dL (2.5-4.5); Potassium 5.9 mmol/L (3.5-5.1); Sodium 138 mmol/L (136-145); Total Bilirubin 0.8 mg/dL (0.15-1.2); Total Protein 7.4 g/dL (6.6-8.7)
[2024-09-13] MEDS: heparin 5,000 unit/mL INJ 1 mL 5000 UNIT SUBCUT ×2 (06:21→17:22)
--- NOTE | 2024-09-13 07:13 | PC.NURSE ---
c/o 12/28 headache. She was given morphine earlier which only made it worse. She she cannot take tylenol due to making her sick to her stomach. Informed Dr Garcia and received onetime order for Tramadol 50mg PO.
[2024-09-13] MEDS: TRAMadol 50 mg Tablet PO (07:22)
[2024-09-13] MEDS: pantoprazole DR 40 mg Tablet PO ×2 (07:22→17:22)
[2024-09-13] MEDS: sodium chloride 0.9% 1,000 ML 75 ML IV (07:25)
[2024-09-13 09:21] LABS: Potassium 5.3 mmol/L (3.5-5.1)
--- NOTE | 2024-09-13 10:02 | CT_ITS ---
WS: [id number] CT HEAD NONCONTRAST HISTORY: Headache, post fall TECHNIQUE: Contiguous axial imaging performed through the brain. Bone and soft tissue windows. Sagittal and coronal reformats reviewed. All CT scans at [facility] use at least one of these dose optimization techniques: automated exposure control; mA and/or kV adjustment per patient size (includes targeted exams where dose is matched to clinical indication); or iterative reconstruction. DLP: 1062.03 mGy.cm COMPARISON: 09/12/2024 No acute intracranial hemorrhage, midline shift or mass effect. Mild symmetric atrophy and small vessel disease. Mild cerebellar atrophy. Ventricles: Normal size with no hydrocephalus. No inferior displacement of the cerebellar tonsils. Paranasal sinuses: As visualized are clear. Mastoid air cells: Well pneumatized. Calvarium and scalp: Skull is intact with no soft tissue edema or swelling. CT/CT head wo con* [id number] IMPRESSION: 1. No acute intracranial hemorrhage or edema. 2. Mild cerebral and cerebellar atrophy and small vessel disease.
[2024-09-13] MEDS: sodium polystyrene sulfonate 15 gm/60 mL Btl PO (10:24)
[2024-09-13] MEDS: calcium gluconate 0.9% NaCL 1 GM/50 ML PREMIX IV ×2 (10:24→10:25)
--- NOTE | 2024-09-13 10:47 | P.PN_ITS ---
Subjective 2 Subjective: No acute events overnight. Today morning complains of headache. Seen with family at bedside. Heart rate better than yesterday but still around 50s. Patient denies any nausea, vomiting. Vitals/I&O/Wt Last Vital Signs Temp 98.0 F 09/13/24 08:52 Pulse 48 L 09/13/24 00:39 Resp 20 H 09/13/24 08:52 BP 112/63 09/13/24 08:52 Pulse Ox 95 09/13/24 05:39 O2 Del Method Room Air 09/13/24 05:39 09/12/24 09/13/24 09/13/24 22:59 06:59 14:59 Intake Total 1600 / 1850 1000 / 2850 361.667 / 361.667 Balance 1600 / 1850 1000 / 2850 361.667 / 361.667 Weight last 48 hrs Weight 128.185 kg Weight 138.346 kg Physical Exam 2 Narrative: General: No acute distress, AO x3, morbidly obese HEENT: PERRLA, pupils bilaterally equal and reactive Chest: Normal vesicular breath sounds, no added sounds, equal good air entry bilaterally CVS: S1-S2 regular, no murmurs, bradycardia, no gallops, no rubs Abdomen: Soft, nontender, no organomegaly, bowel sounds present Neuro: No focal deficits, no facial deformity, AO x3, power 5/5 in all limbs Data 09/13/24 03:14 09/13/24 09:00 Micro: Microbiology 09/12/24 14:39 Bacterial Antigens - Final Urine Kidney A&P Assessment and plan (1) Acute renal failure: Due to combination of spironolactone on recent and Bactrim. Baseline creatinine around 1. Currently 1.3. Medical decussation for nephrotoxic Resperate hold off on Bactrim and spironolactone for now. NS at 75 cc/h. Monitor BMP daily. (2) Acute hyperkalemia: Insetting of ELISA along with bradycardia. Potassium up to 6.9. Repeat 2 g of IV calcium, 1 more dose of dextrose continues of insulin, Kayexalate 30 g. Monitor potassium every 6 hour. Telemetry. (3) Bradycardia: .Insetting of hyperkalemia. Telemetry. Continue to monitor. (4) Cirrhosis of liver: (5) Portal hypertension: (6) Morbid obesity: (7) Obstructive sleep apnea: BiPAP nightly and as needed Plan History of UTI: Currently UA negative for concern for UTI. Patient not having dysuria. Hold off on antibiotics for now. Plan for the day: Creatinine stable at 1.3. Urine output not charted. Continue with normal saline at 75 cc/h. Potassium improved to 5.3. Repeat 1 g of IV calcium gluconate, Kayexalate 15 g. Continue checking every 6 hours. Given fall prior to admission, continuous headache will repeat CT head. A1c 7.7. Start on insulin sliding scale. Full code Renal nondialysis diet Protonix OPD prophylaxis Heparin for DVT prophylaxis PDMP PDMP Reviewed: Not Reviewed Attestations 2 Medical Necessity Statement*: Requires further hospitalization for management of hyperkalemia, bradycardia in setting of acute kidney injury Diagnoses Acute renal failure N17.9 Acute hyperkalemia E87.5 Bradycardia R00.1 Cirrhosis of liver K74.60 Portal hypertension K76.6 Morbid obesity E66.01 Obstructive sleep apnea G47.33
[2024-09-13 11:37] LABS: Glucose Point of Care 136 mg/dL (70-110)
[2024-09-13 16:21] LABS: Anion Gap 18.9 (5-19); Blood Urea Nitrogen 36 mg/dL (6-20); Calcium 9.7 mg/dL (8.5-10.5); Carbon Dioxide 19 mmol/L (22-29); Chloride 103 mmol/L (98-107); Creatinine Clr Calc Pharmacy 77.3681; Glomerular Filtration Rate 51.2 mL/min (90-130); Glucose 127 mg/dL (65-115); Osmolality Calculated 292 mOsm/kg (285-295); Potassium 4.9 mmol/L (3.5-5.1); Sodium 136 mmol/L (136-145)
[2024-09-13 17:04] LABS: Glucose Point of Care 125 mg/dL (70-110)
[2024-09-13] MEDS: ketorolac 30 mg/mL INJ 15 MG IVP (17:49)
[2024-09-13] MEDS: ondansetron 2 mg/ML SDV 2 mL 4 MG IVP (17:49)
[2024-09-13 21:11] LABS: Glucose Point of Care 163 mg/dL (70-110)
[2024-09-13] MEDS: insulin lispro 100 unit/1 mL SUBCUT (21:14)
[2024-09-14] VITALS (7 sets, daily range): BP systolic 114–139; BP diastolic 72–86; PULSE 54–85; RESP 16–25; TEMP 36.5–36.6; O2SAT 92–98
[2024-09-14 04:25] LABS: Basophils % 0.8 %; Eosinophils # 0.1 10^3/uL (0.0-0.8); Eosinophils % 4.7 %; Hematocrit 35.1 % (36-47); Lymphocytes # 0.7 10^3/uL (0.8-4.8); Lymphocytes % 27.5 %; Mean Corpuscular HGB Conc 32.2 g/dL (30-55); Mean Corpuscular Hemoglobin 28.4 pg (27-33); Mean Corpuscular Volume 88.2 fl (85-98); Mean Platelet Volume 10.4 fL (7.4-10.4); Monocytes # 0.2 10^3/uL (0.2-0.9); Monocytes % 9.3 %; Neutrophils # 1.49 10^3/uL (1.8-7.7); Neutrophils % 57.7 %; Nucleated Red Blood Cells % 0 %; Platelet Count 84 10^3/cmm (157-399); Red Blood Count 3.98 10^6/uL (3.85-5.65); Red Cell Distribution Width 13.8 % (12.1-15.1); White Blood Count 2.58 10^3/uL (3.29-11.43)
[2024-09-14] MEDS: heparin 5,000 unit/mL INJ 1 mL 5000 UNIT SUBCUT (04:39)
[2024-09-14 04:56] LABS: Alanine Aminotransferase 39 U/L (0-33); Albumin Level 3.6 g/dL (3.5-5.2); Alkaline Phosphatase 45 U/L (35-105); Anion Gap 16.1 (5-19); Aspartate Amino Transferase 28 U/L (0-32); Blood Urea Nitrogen 38 mg/dL (6-20); Calcium 9.2 mg/dL (8.5-10.5); Carbon Dioxide 19 mmol/L (22-29); Chloride 107 mmol/L (98-107); Creatinine Clr Calc Pharmacy 62.7831; Globulin 2.9 g/dL (1.3-4.6); Glomerular Filtration Rate 38.8 mL/min (90-130); Glucose 118 mg/dL (65-115); Magnesium 1.8 mg/dL (1.7-2.3); Osmolality Calculated 294 mOsm/kg (285-295); Potassium 5.1 mmol/L (3.5-5.1); Sodium 137 mmol/L (136-145); Total Bilirubin 0.7 mg/dL (0.15-1.2); Total Protein 6.5 g/dL (6.6-8.7)
[2024-09-14 06:05] LABS: Glucose Point of Care 121 mg/dL (70-110)
[2024-09-14] MEDS: morphine 4 mg/mL SDV 1 mL 2 MG IVP (06:07)
[2024-09-14] MEDS: docusate sodium 100 mg Capsule PO (07:57)
[2024-09-14] MEDS: pantoprazole DR 40 mg Tablet PO (07:57)
[2024-09-14] MEDS: FUROsemide 10 mg/mL SDV 4mL 40 MG IVP (09:16)
--- NOTE | 2024-09-14 11:11 | PM.DCS ---
Discharge Providers Date of Admission: 09/12/24 17:14 Date of Discharge: September 14, 2024 Attending Provider at Admission: Newton Garcia MD Attending Provider at Discharge: Newton Garcia MD Primary Care Provider: Deacon Resendiz MD Diagnoses at Discharge Discharge Diagnosis (1) Acute renal failure: Status: Acute (2) Acute hyperkalemia: Status: Acute (3) Bradycardia: Status: Acute (4) Cirrhosis of liver: Status: Acute (5) Portal hypertension: Status: Acute (6) Morbid obesity: Status: Acute (7) Obstructive sleep apnea: Status: Acute Reason for Visit Reason for Visit: weakness Hospital Course Hospital Course Shelby Mg is a 58 year old female with past medical history of hepatitis C, liver cirrhosis, esophageal varices who was very recently put on oral Bactrim by her PCP with concerns for UTI over a week ago. Patient has been having episodes of weakness, muscle cramps with occasional falls in the last 2 days and she presented to the ER. In the ER she was found to have acute kidney injury with creatinine of 1.3, hyperkalemia with potassium of 6 9 and bradycardia with heart rate dropping down to 40s. She was given 2 L of IV fluid bolus, 1 g of IV calcium gluconate, 10 units of insulin, 2 doses of D10. Currently on examination her heart rate is 45 bpm, awake and alert with family at bedside. Patient was admitted to the hospital further evaluation and management of acute kidney injury with hyperkalemia in setting of home use of spironolactone, new Bactrim. She was started on IV hydration, treatment for hyperkalemia with insulin D10, Kayexalate and calcium gluconate. Gradually her her hyperkalemia resolved and after that her bradycardia also resolved. Her kidney functions are so far remained stable. She is not discharged in hemodynamically stable condition with advised to hold nadolol for 2 weeks. She is to follow-up with her primary care provider within next 2 to 4 days for repeat BMP. During hospitalization she was found to have diabetes for which Januvia has been added to her medication list. She is to hold off on spironolactone for 2 weeks. She will continue taking Lasix 20 mg oral daily. Physical Exam Narrative: General: No acute distress, AO x3, morbidly obese HEENT: PERRLA, pupils bilaterally equal and reactive Chest: Normal vesicular breath sounds, no added sounds, equal good air entry bilaterally CVS: S1-S2 regular, no murmurs, bradycardia, no gallops, no rubs Abdomen: Soft, nontender, no organomegaly, bowel sounds present Neuro: No focal deficits, no facial deformity, AO x3, power 5/5 in all limbs Discharge Data Studies Completed and Pending Completed Studies During Hospitalization Category Date Time Status CT abdomen pelvis wo con [id number] Stat Cat Scan 09/12/24 13:[address] head wo con* [id number] Routine Cat Scan 09/13/24 10:[address] head wo con* [id number] Stat Cat Scan 09/12/24 13:51 Completed XR chest 1V portable [id number] Stat Exams 09/12/24 12:12 Completed Pending at discharge Category Date Time Status Complete Blood Count w/Auto AM LABS Lab 09/15/24 04:00 Ordered Comprehensive Metabolic Panel AM LABS Lab 09/15/24 04:00 Ordered Magnesium AM LABS Lab 09/15/24 04:00 Ordered Phosphorus AM LABS Lab 09/15/24 04:00 Ordered Radiology Impressions Chest X-Ray 09/12/24 12:12 IMPRESSION: 1. Negative chest. Abdomen/Pelvis CT 09/12/24 13:16 IMPRESSION: 1. No acute abdominal or pelvic abnormalities. 2. No renal obstruction or calcification. 3. Hepatosplenomegaly with portal hypertension. 4. Recanalized umbilical vein. 5. Cirrhotic liver. 6. Stable LEFT adrenal adenoma. 7. Prior hysterectomy. Head CT 09/13/24 10:02 IMPRESSION: 1. No acute intracranial hemorrhage or edema. 2. Mild cerebral and cerebellar atrophy and small vessel disease. Laboratory Results WBC 2.58 10^3/uL (3.29-11.43) L 09/14/24 03:58 RBC 3.98 10^6/uL (3.85-5.65) 09/14/24 03:58 Hgb 11.30 g/dL (11.27-16.99) 09/14/24 03:58 Hct 35.1 % (36-47) L 09/14/24 03:58 MCV 88.2 fl (85-98) 09/14/24 03:58 MCH 28.4 pg (27-33) 09/14/24 03:58 MCHC 32.2 g/dL (30-55) 09/14/24 03:58 RDW 13.8 % (12.1-15.1) 09/14/24 03:58 Plt Count 84 10^3/cmm (157-399) L 09/14/24 03:58 MPV 10.4 fL (7.4-10.4) 09/14/24 03:58 Neut % (Auto) 57.7 % 09/14/24 03:58 Lymph % (Auto) 27.5 % 09/14/24 03:58 Callahan % (Auto) 9.3 % 09/14/24 03:58 Eos % (Auto) 4.7 % 09/14/24 03:58 Baso % (Auto) 0.8 % 09/14/24 03:58 Neut # (Auto) 1.49 10^3/uL (1.8-7.7) L 09/14/24 03:58 Lymph # (Auto) 0.7 10^3/uL (0.8-4.8) L 09/14/24 03:58 Callahan # (Auto) 0.2 10^3/uL (0.2-0.9) 09/14/24 03:58 Eos # (Auto) 0.1 10^3/uL (0.0-0.8) 09/14/24 03:58 Baso # (Auto) 0.0 10^3/uL (0.0-0.1) 09/14/24 03:58 Nucleated RBC % (auto) 0 % 09/14/24 03:58 Nucleated RBCs # 0.0 /100WBC 09/14/24 03:58 PT 15.00 SECONDS (12.1-14.9) H 09/12/24 12:15 INR 1.10 (0.8-1.2) 09/12/24 12:15 Sodium 137 mmol/L (136-145) 09/14/24 03:58 Potassium 5.1 mmol/L (3.5-5.1) 09/14/24 03:58 Chloride 107 mmol/L (98-107) 09/14/24 03:58 Carbon Dioxide 19 mmol/L (22-29) L 09/14/24 03:58 Anion Gap 16.1 (5-19) 09/14/24 03:58 BUN 38 mg/dL (6-20) H 09/14/24 03:58 Creatinine 1.4 mg/dL (0.5-0.9) H 09/14/24 03:58 GFR Calculation 38.8 mL/min (90-130) L 09/14/24 03:58 Glucose 118 mg/dL (65-115) H 09/14/24 03:58 POC Glucose 121 mg/dL (70-110) H 09/14/24 05:56 Estimat Average Glucose 174 09/12/24 12:15 Hemoglobin A1c 7.7 % (4.0-6.0) H 09/12/24 12:15 Calculated Osmolality 294 mOsm/kg (285-295) 09/14/24 03:58 Calcium 9.2 mg/dL (8.5-10.5) 09/14/24 03:58 Phosphorus 5.0 mg/dL (2.5-4.5) H 09/14/24 03:58 Magnesium 1.8 mg/dL (1.7-2.3) 09/14/24 03:58 Iron 186 ug/dL (37-145) H 09/12/24 16:10 TIBC 477 mcg/dl 09/12/24 16:10 % Saturation 38.9 % (20-50) 09/12/24 16:10 Unsat Iron Binding 291 ug/dL (112-347) 09/12/24 16:10 Total Bilirubin 0.7 mg/dL (0.15-1.2) 09/14/24 03:58 AST 28 U/L (0-32) 09/14/24 03:58 ALT 39 U/L (0-33) H 09/14/24 03:58 Alkaline Phosphatase 45 U/L (35-105) 09/14/24 03:58 Total Protein 6.5 g/dL (6.6-8.7) L 09/14/24 03:58 Albumin 3.6 g/dL (3.5-5.2) 09/14/24 03:58 Globulin 2.9 g/dL (1.3-4.6) 09/14/24 03:58 Triglycerides 124 mg/dL (0-150) 09/13/24 03:14 Cholesterol 168 mg/dL (0-200) 09/13/24 03:14 LDL Cholesterol, Calc 108 mg/dL (50-129) 09/13/24 03:14 HDL Cholesterol 35 mg/dL (60-100) L 09/13/24 03:14 LDL/HDL Ratio 3.09 RATIO (0.00-3.22) 09/13/24 03:14 Cholesterol/HDL Ratio 4.80 mg/dL (0.0-4.40) H 09/13/24 03:14 Lipase 54 U/L (13-60) 09/12/24 12:15 Vitamin B12 699 pg/mL (232-1245) 09/12/24 16:10 Folate 5.9 ng/mL (4.8-37.3) 09/13/24 03:14 Procalcitonin 0.09 ng/mL (0-0.5) 09/13/24 03:14 TSH 4.92 uIU/mL (0.27-4.20) H 09/12/24 12:15 Urine Color Yellow (Yellow) 09/12/24 14:39 Urine Appearance Clear (CLEAR) 09/12/24 14:39 Urine pH 6.0 (5-7) 09/12/24 14:39 Ur Specific [place] 1.011 (1.005-1.030) 09/12/24 14:39 Urine Protein Negative (Negative) 09/12/24 14:39 Urine Glucose (UA) Negative (Normal) 09/12/24 14:39 Urine Ketones Negative (Negative) 09/12/24 14:39 Urine Blood Negative (Negative) 09/12/24 14:39 Urine Nitrate Negative (Negative) 09/12/24 14:39 Urine Bilirubin Negative (Negative) 09/12/24 14:39 Urine Urobilinogen 1.0 mg/dL (Negative) 09/12/24 14:39 Ur Leukocyte Esterase Negative (Negative) 09/12/24 14:39 Urine RBC 0-2 /hpf (0-2) 09/12/24 14:39 Urine WBC 0-5 /hpf (0-5) 09/12/24 14:39 Ur Squamous Epith Cells 0-5 /hpf (0-5) 09/12/24 14:39 Amorphous Sediment Not Reportable 09/12/24 14:39 Urine Bacteria Trace /hpf (NONE) 09/12/24 14:39 Hyaline Casts 0-4 /lpf H 09/12/24 14:39 Urine Creatinine 38 mg/dL (28-217) 09/12/24 14:39 Vitals Last Vital Signs Temp 97.9 F 09/14/24 07:57 Pulse 61 09/14/24 07:57 Resp 17 09/14/24 07:57 BP 139/81 09/14/24 07:57 Pulse Ox 98 09/14/24 07:57 O2 Del Method Nasal Cannula 09/14/24 07:57 Discharge Plan Discharge Patient Disposition: Home Condition: Stable Prescriptions: New furosemide [Lasix] 40 mg tablet 20 mg PO QAM Qty: 30 0RF Januvia 100 mg tablet 100 mg PO DAILY Qty: 30 0RF Continued pantoprazole 40 mg tablet,delayed release (DR/EC) 40 mg PO BID clobetasol 0.05 % ointment 1 applic TOPICAL BID PRN (Reason: Skin Irritation) Held nadolol 20 mg tablet 20 mg PO DAILY Hold Instructions: Resume on 09/21/24. Discontinued sulfamethoxazole-trimethoprim 800-160 mg tablet 1 tab PO Q12H spironolactone 50 mg tablet 50 mg PO BID Discharge Orders: Discharge Order (Routine); Ordered 09/14/24 Ordered By: Newton Garcia Referrals: Deacon Resendiz MD [Primary Care Provider, [facility]] - 09/17/24 3:30 pm Discharge Diet: Cardiac Discharge Activity: Resume usual activity and Increase activity as tolerated Patient Instructions: Furosemide (By mouth) (Lasix), Sitagliptin (By mouth) (Januvia, Zituvio, Brynovin), Headache, Acute Kidney Injury (DC), Potassium Content of Foods List (DC), Meal Planning with Diabetes Exchanges (DC), Hyperkalemia (DC), Opioid Safety, Patient Portal & Giselle Instructions Activity Restrictions/Additional Instructions: Follow-up with your primary care provider within next 1 week for a repeat BMP. Do not take spironolactone for next 2 weeks. Take Lasix 20 mg oral daily. You can take extra Lasix if your body weight increases by 5 pounds. Do not take nadolol for next 1 week. Take Januvia for diabetes once daily. He should have a repeat A1c in 6 months. Discharge Attestations Time Spent in Discharge Care*: greater than 30 min Specific Discharge Activities: educating patient, educating and/or supporting family/caregiver, discussing with pcp/other providers, discussing with protective services case worker/social workers/dc planners, documenting/other paperwork and evaluating patient/reviewing data Status at Discharge: Cognitive status at discharge: cognitively intact, Behavioral status at discharge: cooperative, Functional status at discharge: uses cane/walker, Overall status at discharge: patient is back to baseline Quality Metrics Clinical Quality Measures [ No reported AMI, CVA or VTE this stay] Coding Level of Care Code 01680 Total time (in minutes) for Discharge: 65 Diagnoses Acute renal failure N17.9 Acute hyperkalemia E87.5 Bradycardia R00.1 Cirrhosis of liver K74.60 Portal hypertension K76.6 Morbid obesity E66.01 Obstructive sleep apnea G47.33
[2024-09-14 11:55] LABS: Glucose Point of Care 163 mg/dL (70-110)
[2024-09-14] MEDS: insulin lispro 100 unit/1 mL SUBCUT (12:38)
--- NOTE | 2024-09-14 12:49 | PC.NURSE ---
Discharge Note Patient discharged to home via wheelchair accompanied by daughter. Discharge instructions reviewed with patient and/or employment program representative. Mobile pharmacy medications and/or prescriptions provided. Belongings/home medications returned.
== END 2024-09-14 12:49 | disposition home or self-care (01) | DRG 683 ==
LOC: ER 16:38 → ER IP 17:14 → CSU 17:48
PROVIDERS: Emergency Medicine; Admitting Provider Student in an Organized Health Care Education/Training Program; Emergency Provider Emergency Medicine; PCP Family Medicine; Visit Provider Student in an Organized Health Care Education/Training Program
DX: N17.9 Acute kidney failure, unspecified (principal); K76.6 Portal hypertension; Z68.42 Body mass index [BMI] 45.0-49.9, adult; E87.5 Hyperkalemia; R00.1 Bradycardia, unspecified; K74.60 Unspecified cirrhosis of liver; E66.01 Morbid (severe) obesity due to excess calories; G47.33 Obstructive sleep apnea (adult) (pediatric); E11.9 Type 2 diabetes mellitus without complications; K21.9 Gastro-esophageal reflux disease without esophagitis; S00.81XA Abrasion of other part of head, initial encounter; W01.0XXA Fall on same level from slipping, tripping and stumbling without subsequent striking against object, initial encounter; Z86.19 Personal history of other infectious and parasitic diseases; Z87.440 Personal history of urinary (tract) infections
CPT/HCPCS: 36415; 36416; 70450; 71045; 74176; 80048; 80053; 80061; 81001; 82570; 82607; 82746; 82962; 83036; 83540; 83550; 83690; 83735; 84100; 84132; 84145; 84443; 85025; 85610; 86403; 93005; 94664; 96372; 96374; 96375; 96376; 99285; 99291; 99292; A9270; J0612; J1644; J1815; J1885; J1938; J2270; J2405; J7030; J7799; J9999

== ENCOUNTER 2024-10-22 10:57 | Day surgery (SDC) | payer MEDICAID, SELFPAY ==
--- NOTE | 2024-10-22 11:43 | US_ITS ---
WS: [id number] ULTRASOUND-GUIDED PARACENTESIS CLINICAL INFORMATION: ascites US/US paracentesis abd w [id number] IMPRESSION: No significant ascites visualized today. Paracentesis not performed.
[2024-10-22 11:44] VITALS: BP 146/92; PULSE 81; RESP 17; TEMP 36.7; O2SAT 96
== END 2024-10-22 12:21 | disposition home or self-care (01) ==
LOC: GILAB 11:01
PROVIDERS: Radiology Neuroradiology; PCP Family Medicine; Visit Provider Family Medicine
PROC: (CPT 49082; principal; 2024-10-22 12:30)
DX: R18.8 Other ascites (principal)
CPT/HCPCS: 49083

== ENCOUNTER 2024-11-15 15:05 | Oncology outpatient (recurring) (ONCR) | payer MEDICAID, SELFPAY ==
[2024-10-25 15:16] LABS: Ammonia 46 umol/L (11-51)
[2024-10-25 15:18] LABS: Hematocrit 35.0 % (36-47); Hemoglobin 11.30 g/dL (11.27-16.99); Mean Corpuscular HGB Conc 32.3 g/dL (30-55); Mean Corpuscular Hemoglobin 28.3 pg (27-33); Mean Corpuscular Volume 87.5 fl (85-98); Nucleated Red Blood Cells % 0 %; Platelet Count 96 10^3/cmm (157-399); Red Blood Count 4.00 10^6/uL (3.85-5.65); White Blood Count 1.86 10^3/uL (3.29-11.43)
[2024-10-25 15:31] LABS: INR 0.95 (0.8-1.2); Prothrombin Time 13.40 SECONDS (12.1-14.9)
[2024-10-25 15:36] LABS: Alanine Aminotransferase 40 U/L (0-33); Albumin Level 4.1 g/dL (3.5-5.2); Alkaline Phosphatase 57 U/L (35-105); Anion Gap 14.2 (5-19); Aspartate Amino Transferase 53 U/L (0-32); Blood Urea Nitrogen 19 mg/dL (6-20); Calcium 9.6 mg/dL (8.5-10.5); Carbon Dioxide 29 mmol/L (22-29); Chloride 103 mmol/L (98-107); Creatinine Clr Calc Pharmacy 97.2078; Ferritin 47 ng/mL (15-150); Globulin 2.9 g/dL (1.3-4.6); Glucose 114 mg/dL (65-115); Iron 90 ug/dL (37-145); Osmolality Calculated 299 mOsm/kg (285-295); Potassium 3.2 mmol/L (3.5-5.1); Sodium 143 mmol/L (136-145); Total Iron Binding Capacity 398 mcg/dl; Total Protein 7.0 g/dL (6.6-8.7); Unsaturated Iron Binding 308 ug/dL (112-347)
[2024-10-25 16:00] LABS: Tumor Marker Alpha Fetoprotein 5.6 ng/mL (0-8.3)
[2024-10-26 14:39] LABS: Leukemia Profile (BBPL) See Report
== END 2024-11-18 23:59 | disposition home or self-care (01) ==
PROVIDERS: PCP Family Medicine; Visit Provider Internal Medicine
DX: Z53.9 Procedure and treatment not carried out, unspecified reason (principal)
CPT/HCPCS: 36415; 80053; 82105; 82140; 82232; 82728; 83010; 83540; 83550; 83615; 85025; 85045; 85610; 86880; 88184; 88185